=== PATIENT | female | born 1945 | race Caucasian/White ===

== ENCOUNTER 2021-03-27 15:44 | Inpatient (IN) | payer MEDICARE, BC ==
[2021-03-27] MEDS ORDERED: Albuterol/Ipratropium 3.0-0.5 MG/3 ML Neb Soln NEB ONE (16:27)
--- NOTE | 2021-03-27 16:50 | EDM.PDOC ---
ED HPI GENERAL MEDICAL PROBLEM - General Chief Complaint: Respiratory Problem Stated Complaint: SOB, HALLUCINATIONS, CONCERNS OF EMPHYSEMA Time Seen by Provider: 03/27/21 16:00 Source of Information: Reports: Family History Limitations: Reports: No Limitations - History of Present Illness INITIAL COMMENTS - FREE TEXT/NARRATIVE: Patient is a 76-year-old female with a past medical history of obesity and hypertension presenting with a chief complaint of shortness of breath and hallucinations. Patient is present with son who provides most of history. According to son, she was recently diagnosed with emphysema. She is scheduled to see the specialist next week. However, she has noticed over the past few days she has been feeling increasingly short of breath. She has had some mild cough but no fevers. Denies any associated chest pain. Patient has also been having hallucinations at home. The hallucinations are described as intruders in the house when no one is there. There is not been any associated confusion. She is still been alert day and time and relatives. Hallucinations have been ongoing for several days now as well. - Related Data Allergies Allergy/AdvReac Type Severity Reaction Status Date / Time erythromycin base Allergy Rash Verified 03/28/21 16:49 Penicillins Allergy Hives Verified 03/27/21 16:05 Sulfa (Sulfonamide Allergy Hives Verified 03/27/21 16:05 Antibiotics) MICHELLE Inhibitors AdvReac Cough Verified 03/27/21 16:05 Home Meds: Home Meds Allopurinol [Zyloprim] 300 mg PO DAILY 01/02/16 [History] Aspirin 81 mg PO DAILY 01/02/16 [History] Clindamycin HCl [Cleocin] 600 mg PO ASDIRECTED PRN 01/02/16 [History] Metoprolol Succinate [Toprol XL] 50 mg PO BID 01/02/16 [History] Omeprazole 20 mg PO ACBREAKFAST 01/02/16 [History] Simvastatin [Zocor] 5 mg PO BEDTIME 01/02/16 [History] Warfarin [Coumadin] 2.5 mg PO SUTUWETHSA 01/02/16 [History] dilTIAZem HCL [Cartia Xt] 240 mg PO DAILY 01/02/16 [History] Doxazosin Mesylate [Cardura] 2 mg PO BEDTIME 03/27/21 [History] Losartan [Cozaar] 50 mg PO DAILY 03/27/21 [History] Multivitamin [Multi-Vitamin Daily] 1 tab PO DAILY 03/27/21 [History] Triamcinolone Acetonide [Triamcinolone Acetonide 0.1% Crm] 1 applic TOP ASDIRECTED PRN 03/27/21 [History] Warfarin [Coumadin] 5 mg PO MOFR 03/27/21 [History] Past Medical History Cardiovascular History: Reports: Pacemaker Respiratory History: Reports: SOB Gastrointestinal History: Reports: GERD, Hiatal Hernia Genitourinary History: Reports: Chronic Renal Insuffiency Musculoskeletal History: Reports: Arthritis, Back Pain, Chronic Dermatologic History: Reports: Other (See Below) Other Dermatologic History: itching - Past Surgical History HEENT Surgical History: Reports: Tonsillectomy GI Surgical History: Reports: Cholecystectomy Social & Family History - Tobacco Use Tobacco Use Status *Q: Never Tobacco User - Living Situation & Occupation Living situation: Reports: Single Occupation: Retired ED ROS GENERAL - Review of Systems Review Of Systems: See Below Free Text/Narrative/Comment: In addition to that documented in the HPI above, the additional ROS was obtained: Constitutional: Denies fevers or chills Eyes: Denies vision changes ENMT: Denies sore throat CV: Denies chest pain Resp: Per HPI GI: Denies vomiting or diarrhea : Denies painful urination MSK: Denies recent trauma Skin: Denies new rashes Neuro: Denies new numbness or tingling or weakness Endocrine: Denies unexpected weight loss Heme: Denies bleeding disorders ED EXAM, GENERAL - Physical Exam Exam: See Below Free Text/Narrative:: I have reviewed the triage vital signs Const: Well nourished, well developed, appears stated age Eyes: Pupils Equal and reactive to light bilaterally, no conjunctival injection HENT: No signs of trauma or swelling, Neck supple without meningismus CV: Regular Rate Rhythm, Warm, well-perfused extremities RESP: Diffuse bilateral wheezes. Pursed lips breathing. Unlabored respiratory effort GI: soft, non-tender, non-distended, no masses MSK: No gross deformities appreciated Skin: Warm, dry. 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 Sensation and motor funct ion of extremities grossly intact. Psych: Appropriate mood and affect. #1 Interpretation EKG Date: 03/27/21 Time: 17:03 Rhythm: Other Rate (Beats/Min): 64 EKG Interpretation Comments: Ventricular paced rhythm. Abnormal EKG Course - Vital Signs Last Recorded V/S: Last Vital Signs Temp 36.5 C 03/28/21 14:50 Pulse 68 03/28/21 14:50 Resp 22 H 03/28/21 14:50 BP 153/64 H 03/28/21 14:50 Pulse Ox 94 L 03/28/21 14:50 - Orders/Labs/Meds Orders: Active Orders 24 hr Category Date Time Status RT Aerosol Therapy [RC] ASDIRECTED Care 03/27/21 16:28 Active Medication Orders Albuterol/Ipratropium (Albuterol/Ipratropium 3.0-0.5 Mg/3 Ml Neb Soln) 3 ml NEB BIDRT [facility] Aspirin (Aspirin 81 Mg Tab.Chew) 81 mg PO DAILY [facility] Azithromycin 500 mg/ Sodium (Chloride) 250 mls @ 250 mls/hr IV Q24H [facility] Stop: 03/29/21 20:29 Ceftriaxone Sodium 1 gm/ (Sodium Chloride) 100 mls @ 200 mls/hr IV Q24H [facility] Stop: 03/31/21 19:29 Losartan Potassium (Losartan 50 Mg Tab) 50 mg PO DAILY [facility] Metoprolol Succinate (Metoprolol Succinate 50 Mg Tab.Er) 50 mg PO BID [facility] Pantoprazole Sodium (Pantoprazole 40 Mg Tab.Cr) 40 mg PO ACBREAKFAST [facility] Pravastatin Sodium (Pravastatin 20 Mg Tab) 10 mg PO BEDTIME [facility] Warfarin Sodium (Pharmacy To Dose - Warfarin) 0 dose .XX ASDIRECTED PRN PRN Reason: RX TO DOSE WARFARIN Warfarin Sodium (Warfarin 1 Mg Tab) 1 mg PO QPM [facility] Stop: 03/28/21 21:00 Labs: Laboratory Tests 03/27/21 03/27/21 03/27/21 Range/Units 16:37 16:37 16:37 WBC 6.28 (3.98-10.04) K/mm3 RBC 3.63 L (3.98-5.22) M/mm3 Hgb 10.4 L D (11.2-15.7) gm/dl Hct 34.7 (34.1-44.9) % MCV 95.6 H D (79.4-94.8) fl MCH 28.7 (25.6-32.2) pg MCHC 30.0 L (32.2-35.5) g/dl RDW Std Deviation 51.8 H (36.4-46.3) fL Plt Count 201 (182-369) K/mm3 MPV 9.1 L (9.4-12.3) fl Neut % (Auto) 81.5 H (34.0-71.1) % Lymph % (Auto) 10.7 L (19.3-51.7) % [place] % (Auto) 5.4 (4.7-12.5) % Eos % (Auto) 1.9 (0.7-5.8) Baso % (Auto) 0.3 (0.1-1.2) % Neut # (Auto) 5.12 (1.56-6.13) K/mm3 Lymph # (Auto) 0.67 L (1.18-3.74) K/mm3 [place] # (Auto) 0.34 (0.24-0.36) K/mm3 Eos # (Auto) 0.12 (0.04-0.36) K/mm3 Baso # (Auto) 0.02 (0.01-0.08) K/mm3 PT 35.1 H (9.7-12.0) SECONDS INR 3.31 D-Dimer, Quantitative 0.54 H (0.19-0.50) mg/L VBG pH (7.30-7.40) VBG pCO2 (41-51) mmHg VBG pO2 (40-80) mmHG VBG HCO3 (22-26) meq/L VBG O2 Saturation VBG Base Excess (-4.0-2.0) Sodium 145 (136-145) mEq/L Potassium 3.8 (3.5-5.1) mEq/L Chloride 105 (98-107) mEq/L Carbon Dioxide 31 (21-32) mEq/L Anion Gap 12.8 (5-15) BUN 24 H (7-18) mg/dL Creatinine 1.4 H (0.55-1.02) mg/dL Est Cr Clr Drug Dosing 32.81 mL/min Estimated GFR (MDRD) 36 (>60) mL/min BUN/Creatinine Ratio 17.1 (14-18) Glucose 115 H (70-99) mg/dL Calcium 9.1 (8.5-10.1) mg/dL Total Bilirubin 1.2 H (0.2-1.0) mg/dL AST 26 (15-37) U/L ALT 32 (14-59) U/L Alkaline Phosphatase 84 (46-116) U/L Troponin I (0.00-0.056) ng/mL NT-Pro-B Natriuret Pep (0-450) pg/mL Total Protein 7.7 (6.4-8.2) g/dl Albumin 3.2 L (3.4-5.0) g/dl Globulin 4.5 gm/dL Albumin/Globulin Ratio 0.7 L (1-2) Urine Color (Yellow) Urine Appearance (Clear) Urine pH (5.0-8.0) Ur Specific [place] (1.005-1.030) Urine Protein (Negative) Urine Glucose (UA) (Negative) Urine Ketones (Negative) Urine Occult Blood (Negative) Urine Nitrite (Negative) Urine Bilirubin (Negative) Urine Urobilinogen (0.2-1.0) Ur Leukocyte Esterase (Negative) Urine RBC (0-5) /hpf Urine WBC (0-5) /hpf Ur Squamous Epith Cells (0-5) /hpf Urine Bacteria (FEW) /hpf Urine Mucus (FEW) /hpf SARS-CoV-2 RNA (KARLENE) (NEGATIVE) 03/27/21 03/27/21 03/27/21 Range/Units 16:37 16:37 16:37 WBC (3.98-10.04) K/mm3 RBC (3.98-5.22) M/mm3 Hgb (11.2-15.7) gm/dl Hct (34.1-44.9) % MCV (79.4-94.8) fl MCH (25.6-32.2) pg MCHC (32.2-35.5) g/dl RDW Std Deviation (36.4-46.3) fL Plt Count (182-369) K/mm3 MPV (9.4-12.3) fl Neut % (Auto) (34.0-71.1) % Lymph % (Auto) (19.3-51.7) % [place] % (Auto) (4.7-12.5) % Eos % (Auto) (0.7-5.8) Baso % (Auto) (0.1-1.2) % Neut # (Auto) (1.56-6.13) K/mm3 Lymph # (Auto) (1.18-3.74) K/mm3 [place] # (Auto) (0.24-0.36) K/mm3 Eos # (Auto) (0.04-0.36) K/mm3 Baso # (Auto) (0.01-0.08) K/mm3 PT (9.7-12.0) SECONDS INR D-Dimer, Quantitative (0.19-0.50) mg/L VBG pH 7.36 (7.30-7.40) VBG pCO2 50.8 (41-51) mmHg VBG pO2 39.0 L (40-80) mmHG VBG HCO3 27.8 H (22-26) meq/L VBG O2 Saturation 60.0 VBG Base Excess 2.2 H (-4.0-2.0) Sodium (136-145) mEq/L Potassium (3.5-5.1) mEq/L Chloride (98-107) mEq/L Carbon Dioxide (21-32) mEq/L Anion Gap (5-15) BUN (7-18) mg/dL Creatinine (0.55-1.02) mg/dL Est Cr Clr Drug Dosing mL/min Estimated GFR (MDRD) (>60) mL/min BUN/Creatinine Ratio (14-18) Glucose (70-99) mg/dL Calcium (8.5-10.1) mg/dL Total Bilirubin (0.2-1.0) mg/dL AST (15-37) U/L ALT (14-59) U/L Alkaline Phosphatase (46-116) U/L Troponin I < 0.017 (0.00-0.056) ng/mL NT-Pro-B Natriuret Pep 39519 H (0-450) pg/mL Total Protein (6.4-8.2) g/dl Albumin (3.4-5.0) g/dl Globulin gm/dL Albumin/Globulin Ratio (1-2) Urine Color (Yellow) Urine Appearance (Clear) Urine pH (5.0-8.0) Ur Specific [place] (1.005-1.030) Urine Protein (Negative) Urine Glucose (UA) (Negative) Urine Ketones (Negative) Urine Occult Blood (Negative) Urine Nitrite (Negative) Urine Bilirubin (Negative) Urine Urobilinogen (0.2-1.0) Ur Leukocyte Esterase (Negative) Urine RBC (0-5) /hpf Urine WBC (0-5) /hpf Ur Squamous Epith Cells (0-5) /hpf Urine Bacteria (FEW) /hpf Urine Mucus (FEW) /hpf SARS-CoV-2 RNA (KARLENE) (NEGATIVE) 03/27/21 03/27/21 Range/Units 19:22 19:23 WBC (3.98-10.04) K/mm3 RBC (3.98-5.22) M/mm3 Hgb (11.2-15.7) gm/dl Hct (34.1-44.9) % MCV (79.4-94.8) fl MCH (25.6-32.2) pg MCHC (32.2-35.5) g/dl RDW Std Deviation (36.4-46.3) fL Plt Count (182-369) K/mm3 MPV (9.4-12.3) fl Neut % (Auto) (34.0-71.1) % Lymph % (Auto) (19.3-51.7) % [place] % (Auto) (4.7-12.5) % Eos % (Auto) (0.7-5.8) Baso % (Auto) (0.1-1.2) % Neut # (Auto) (1.56-6.13) K/mm3 Lymph # (Auto) (1.18-3.74) K/mm3 [place] # (Auto) (0.24-0.36) K/mm3 Eos # (Auto) (0.04-0.36) K/mm3 Baso # (Auto) (0.01-0.08) K/mm3 PT (9.7-12.0) SECONDS INR D-Dimer, Quantitative (0.19-0.50) mg/L VBG pH (7.30-7.40) VBG pCO2 (41-51) mmHg VBG pO2 (40-80) mmHG VBG HCO3 (22-26) meq/L VBG O2 Saturation VBG Base Excess (-4.0-2.0) Sodium (136-145) mEq/L Potassium (3.5-5.1) mEq/L Chloride (98-107) mEq/L Carbon Dioxide (21-32) mEq/L Anion Gap (5-15) BUN (7-18) mg/dL Creatinine (0.55-1.02) mg/dL Est Cr Clr Drug Dosing mL/min Estimated GFR (MDRD) (>60) mL/min BUN/Creatinine Ratio (14-18) Glucose (70-99) mg/dL Calcium (8.5-10.1) mg/dL Total Bilirubin (0.2-1.0) mg/dL AST (15-37) U/L ALT (14-59) U/L Alkaline Phosphatase (46-116) U/L Troponin I (0.00-0.056) ng/mL NT-Pro-B Natriuret Pep (0-450) pg/mL Total Protein (6.4-8.2) g/dl Albumin (3.4-5.0) g/dl Globulin gm/dL Albumin/Globulin Ratio (1-2) Urine Color Yellow (Yellow) Urine Appearance Slt cloudy H (Clear) Urine pH 6.0 (5.0-8.0) Ur Specific [place] 1.025 (1.005-1.030) Urine Protein 2+ H (Negative) Urine Glucose (UA) Negative (Negative) Urine Ketones Negative (Negative) Urine Occult Blood 3+ H (Negative) Urine Nitrite Positive H (Negative) Urine Bilirubin Negative (Negative) Urine Urobilinogen 0.2 (0.2-1.0) Ur Leukocyte Esterase 1+ H (Negative) Urine RBC 10-20 H (0-5) /hpf Urine WBC 10-20 H (0-5) /hpf Ur Squamous Epith Cells 5-10 H (0-5) /hpf Urine Bacteria Moderate H (FEW) /hpf Urine Mucus Few (FEW) /hpf SARS-CoV-2 RNA (KARLENE) Negative (NEGATIVE) Meds: Medications Generic Name Dose Route Start Last Admin Trade Name Freq PRN Reason Stop Dose Admin Albuterol/Ipratropium 3 ml 03/28/21 21:00 Albuterol/Ipratropium 3.0-0.5 Mg/3 Ml Neb Soln NEB BIDRT [facility]ITA Aspirin 81 mg 03/29/21 09:00 Aspirin 81 Mg Tab.Chew PO DAILY [facility] Azithromycin 500 mg/ Sodium 250 mls @ 250 mls/hr 03/28/21 19:30 Chloride IV 03/29/21 20:29 Q24H [facility] Ceftriaxone Sodium 1 gm/ 100 mls @ 200 mls/hr 03/28/21 19:00 Sodium Chloride IV 03/31/21 19:29 Q24H [facility] Losartan Potassium 50 mg 03/29/21 09:00 Losartan 50 Mg Tab PO DAILY [facility] Metoprolol Succinate 50 mg 03/28/21 21:00 Metoprolol Succinate 50 Mg Tab.Er PO BID [facility] Pantoprazole Sodium 40 mg 03/29/21 06:00 Pantoprazole 40 Mg Tab.Cr PO ACBREAKFAST [facility] Pravastatin Sodium 10 mg 03/28/21 21:00 Pravastatin 20 Mg Tab PO BEDTIME [facility]ITA Warfarin Sodium 0 dose 03/28/21 14:45 Pharmacy To Dose - Warfarin .XX ASDIRECTED PRN RX TO DOSE WARFARIN Warfarin Sodium 1 mg 03/28/21 18:00 Warfarin 1 Mg Tab PO 03/28/21 21:00 QPM LITA Discontinued Medications Generic Name Dose Route Start Last Admin Trade Name Freq PRN Reason Stop Dose Admin Albuterol/Ipratropium 3 ml 03/27/21 16:27 03/27/21 16:56 Albuterol/Ipratropium 3.0-0.5 Mg/3 Ml Neb Soln NEB 03/27/21 16:28 3 ml ONETIME ONE Administration Furosemide 40 mg 03/27/21 18:12 03/27/21 18:46 Furosemide 40 Mg/4 Ml Vial IVPUSH 03/27/21 18:13 40 mg NOW ONE Administration Furosemide 40 mg 03/28/21 12:15 03/28/21 14:50 Furosemide 40 Mg/4 Ml Vial IVPUSH 03/28/21 12:16 40 mg NOW ONE Administration Furosemide Confirm 03/28/21 14:43 03/28/21 15:06 Furosemide 40 Mg/4 Ml Vial Administered 03/28/21 14:44 Not Given Dose 40 mg .ROUTE .STK-MED ONE Ceftriaxone Sodium 1 gm/ 100 mls @ 200 mls/hr 03/27/21 17:54 03/27/21 18:51 Sodium Chloride IV 03/27/21 18:23 200 mls/hr ONETIME ONE Administration Azithromycin 500 mg/ Sodium 250 mls @ 250 mls/hr 03/27/21 17:54 03/27/21 19:28 Chloride IV 03/27/21 18:53 250 mls/hr ONETIME ONE Administration - Re-Assessments/Exams Free Text/Narrative Re-Assessment/Exam: 03/27/21 18:38 Laboratory studies and chest x-ray reviewed. She demonstrates evidence of pulmonary vascular congestion and bilateral pleural effusions consistent with CHF. Cannot exclude a superimposed pneumonia at the left lung base. Laboratory studies demonstrate 17,000 BNP. Patient otherwise is not showing evidence of NSTEMI. No evidence of sepsis. She is currently requiring 2 L nasal cannula. I administered azithromycin, Rocephin and Lasix in the emergency room. I informed patient that she will need to be admitted for further treatment. At this time, no hospital beds available and this facility or in surrounding areas. Pending admission at this time. Free Text/Narrative Re-Assessment/Exam: 03/28/21 17:05 Patient admitted to hospital service for CHF exacerbation with hypoxia and possible pneumonia. Departure - Departure Time of Disposition: 14:00 Disposition: Admitted As Inpatient 64 Clinical Impression: CHF (congestive heart failure), CKD (chronic kidney disease) stage 3, GFR 30-59 ml/min - Discharge Information Sepsis Event Note (ED) - Evaluation Sepsis Screening Result: No Definite Risk - Focused Exam Vital Signs: Vital Signs Temp Pulse Resp BP Pulse Ox 03/28/21 07:28 36.6 C 64 18 153/73 H 94 L - My Orders Last 24 Hours: My Active Orders 03/27/21 16:28 RT Aerosol Therapy [RC] ASDIRECTED - Assessment/Plan Last 24 Hours: My Active Orders 03/27/21 16:28 RT Aerosol Therapy [RC] ASDIRECTED
[2021-03-27] MEDS ORDERED: Azithromycin 500 MG in Sodium Chloride 0.9% 250 ML IV ONE (17:54)
[2021-03-27] MEDS ORDERED: cefTRIAXone 1 GM in Sodium Chloride 0.9% 100 ML IV ONE (17:54)
[2021-03-27] MEDS ORDERED: Furosemide 40 MG/4 ML VIAL IVPUSH ONE (18:12)
--- NOTE | 2021-03-28 10:08 | CR ---
EXAM: XR CHEST 1 VIEW LOCATION: [facility] (formerly [facility] [employer] DATE/TIME: 03/27/2021 4:30 PM INDICATION: Dyspnea COMPARISON: None. IMPRESSION: Marked cardiomegaly with pacemaker present. There is central vascular congestion and diffuse interstitial prominence most consistent with CHF. Small bilateral pleural effusions. Can't exclude superimposed pneumonia at left lung base. SIGNED BY: Santo Bauman MD 03/27/2021 5:56 PM MTDD
[2021-03-28] MEDS ORDERED: Azithromycin 250 MG in Sodium Chloride 0.9% 250 ML IV ONE (12:15)
[2021-03-28] MEDS ORDERED: Furosemide 40 MG/4 ML VIAL IVPUSH ONE (12:15)
[2021-03-28] MEDS ORDERED: cefTRIAXone 1 GM in Sodium Chloride 0.9% 100 ML IV ONE (12:15)
--- NOTE | 2021-03-28 14:06 | PCM.HP.2 ---
H&P History of Present Illness - General Date of Service: 03/28/21 Admit Problem/Dx: Admission Diagnosis/Problem Admission Diagnosis/Problem Congestive heart failure - History of Present Illness Initial Comments - Free Text/Narative: Patient is a 76-year-old female with a past medical history of atrial fibrillation status post pacemaker on chronic anticoagulation with warfarin, questionable history of CHF, recent diagnosis of emphysema, hypertension, hyperlipidemia who presented the emergency department with shortness of breath and confusion. Per patient, EMS reports patient had been having increased shortness of breath and confusion over the last several days and she had reportedly had some hallucinations per her son who brought her in for further evaluation. Patient was initially hypoxic with oxygen saturation 77% on room air when she was brought to the emergency department. Patient's oxygenation improved significantly with the addition of nasal cannula. Laboratory values include sodium 145, potassium 3.8, creatinine 1.4, BUN 24, white count 6, hemoglobin 10.4, platelet count 201, proBNP 17,799, UA showed moderate bacteria, +3 blood, positive nitrites. Patient's COVID-19 testing was negative. Chest x- ray revealed bilateral effusions, pulmonary edema versus infiltrate. Patient was given ceftriaxone, azithromycin, 40 IV Lasix in the emergency department. Request was made for admission but no beds were available so patient was held in the ER overnight. The following day patient continued provement her oxygenation was requiring 3 to 4 L to maintain oxygen saturations. An additional dose of 40 IV Lasix, ceftriaxone and azithromycin were given to patient prior to admission. Patient remained hemodynamically stable. When I saw patient emergency department she was resting comfortably in bed. She states that she agrees with the above assessment. States that she was seeing things around the house including a little child in their house. She states that her is on dialysis and often gets urinary tract infections and also was seeing things in their house. She states that she has chronic dyspnea for many years and was just recently diagnosed with emphysema on a CAT scan and was supposed to see pulmonary medicine this next Saturday. She states that for the last couple of weeks and specialist couple of days she is noted some increased shortness of breath including worsening leg swelling, orthopnea. She denies any fevers, cough, abdominal pain, urinary pain or frequency, nausea or vomiting. She states that she has a history of A. fib and has a pacemaker and takes medications for this. She states that she has heard that her vending machine repairer was Dr. Nathan at [facility] has mentioned something about heart failure before but she is unsure if she has heart failure. Patient states that she does not take any diuretic medications and she states she is never had to be hospitalized for heart failure. Patient also states for emphysema she does not take any nebulizers at home. Remainder review of systems negative except those listed above. - Related Data Allergies/Adverse Reactions: Allergies Allergy/AdvReac Type Severity Reaction Status Date / Time Penicillins Allergy Hives Verified 03/27/21 16:05 Sulfa (Sulfonamide Allergy Hives Verified 03/27/21 16:05 Antibiotics) MICEHLLE Inhibitors AdvReac Cough Verified 03/27/21 16:05 Home Medications: Home Meds Allopurinol [Zyloprim] 300 mg PO DAILY 01/02/16 [History] Aspirin 81 mg PO DAILY 01/02/16 [History] Clindamycin HCl [Cleocin] 600 mg PO ASDIRECTED PRN 01/02/16 [History] Metoprolol Succinate [Toprol XL] 50 mg PO BID 01/02/16 [History] Omeprazole 5 mg PO ACBREAKFAST 01/02/16 [History] Simvastatin [Zocor] 5 mg PO BEDTIME 01/02/16 [History] Warfarin [Coumadin] 2.5 mg PO SUMOTUWETHSA 01/02/16 [History] dilTIAZem HCL [Cartia Xt] 240 mg PO DAILY 01/02/16 [History] Doxazosin Mesylate [Cardura] 2 mg PO BEDTIME 03/27/21 [History] Losartan [Cozaar] 50 mg PO DAILY 03/27/21 [History] Multivitamin [Multi-Vitamin Daily] 1 tab PO DAILY 03/27/21 [History] Triamcinolone Acetonide [Triamcinolone Acetonide 0.1% Crm] 1 applic TOP A SDIRECTED PRN 03/27/21 [History] Warfarin [Coumadin] 5 mg PO FR 03/27/21 [History] Past Medical History Cardiovascular History: Reports: Pacemaker Respiratory History: Reports: SOB Gastrointestinal History: Reports: GERD, Hiatal Hernia Genitourinary History: Reports: Chronic Renal Insuffiency Musculoskeletal History: Reports: Arthritis, Back Pain, Chronic Dermatologic History: Reports: Other (See Below) Other Dermatologic History: itching - Past Surgical History HEENT Surgical History: Reports: Tonsillectomy GI Surgical History: Reports: Cholecystectomy Social & Family History - Tobacco Use Tobacco Use Status *Q: Never Tobacco User - Living Situation & Occupation Living situation: Reports: Single Occupation: Retired H&P Review of Systems - Review of Systems: Review Of Systems: Comprehensive ROS is negative, except as noted in HPI. Exam - Exam Exam: See Below - Vital Signs Vital Signs: Last Vital Signs Temp 97.9 F 03/28/21 07:28 Pulse 64 03/28/21 07:28 Resp 18 03/28/21 07:28 BP 153/73 H 03/28/21 07:28 Pulse Ox 94 L 03/28/21 07:28 Weight: 243 lb - Exam Quality Assessment: Supplemental Oxygen General: Alert, Oriented HEENT: Conjunctiva Clear, EACs Clear Neck: Supple, Trachea Midline Lungs: Decreased Breath Sounds, Crackles (bases) Cardiovascular: Regular Rate, Irregular Rhythm GI/Abdominal Exam: Normal Bowel Sounds, Soft, Non-Tender Back Exam: Normal Inspection Extremities: Normal Inspection, Normal Range of Motion, Pedal Edema Peripheral Pulses: 2+: Radial (L), Radial (R) Skin: Warm Neurological: Cranial Nerves Intact Neuro Extensive - Mental Status: Alert, Oriented x3 Neuro Extensive - Motor, Sensory, Reflexes: CN II-XII Intact - Patient Data Lab Results Last 24 hrs: Laboratory Results - last 24 hr 03/27/21 03/27/21 03/27/21 Range/Units 16:37 16:37 16:37 WBC 6.28 (3.98-10.04) K/mm3 RBC 3.63 L (3.98-5.22) M/mm3 Hgb 10.4 L D (11.2-15.7) gm/dl Hct 34.7 (34.1-44.9) % MCV 95.6 H D (79.4-94.8) fl MCH 28.7 (25.6-32.2) pg MCHC 30.0 L (32.2-35.5) g/dl RDW Std Deviation 51.8 H (36.4-46.3) fL Plt Count 201 (182-369) K/mm3 MPV 9.1 L (9.4-12.3) fl Neut % (Auto) 81.5 H (34.0-71.1) % Lymph % (Auto) 10.7 L (19.3-51.7) % [place] % (Auto) 5.4 (4.7-12.5) % Eos % (Auto) 1.9 (0.7-5.8) Baso % (Auto) 0.3 (0.1-1.2) % Neut # (Auto) 5.12 (1.56-6.13) K/mm3 Lymph # (Auto) 0.67 L (1.18-3.74) K/mm3 [place] # (Auto) 0.34 (0.24-0.36) K/mm3 Eos # (Auto) 0.12 (0.04-0.36) K/mm3 Baso # (Auto) 0.02 (0.01-0.08) K/mm3 PT 35.1 H (9.7-12.0) SECONDS INR 3.31 D-Dimer, Quantitative 0.54 H (0.19-0.50) mg/L VBG pH (7.30-7.40) VBG pCO2 (41-51) mmHg VBG pO2 (40-80) mmHG VBG HCO3 (22-26) meq/L VBG O2 Saturation VBG Base Excess (-4.0-2.0) Sodium 145 (136-145) mEq/L Potassium 3.8 (3.5-5.1) mEq/L Chloride 105 (98-107) mEq/L Carbon Dioxide 31 (21-32) mEq/L Anion Gap 12.8 (5-15) BUN 24 H (7-18) mg/dL Creatinine 1.4 H (0.55-1.02) mg/dL Est Cr Clr Drug Dosing 32.81 mL/min Estimated GFR (MDRD) 36 (>60) mL/min BUN/Creatinine Ratio 17.1 (14-18) Glucose 115 H (70-99) mg/dL Calcium 9.1 (8.5-10.1) mg/dL Total Bilirubin 1.2 H (0.2-1.0) mg/dL AST 26 (15-37) U/L ALT 32 (14-59) U/L Alkaline Phosphatase 84 (46-116) U/L Troponin I (0.00-0.056) ng/mL NT-Pro-B Natriuret Pep (0-450) pg/mL Total Protein 7.7 (6.4-8.2) g/dl Albumin 3.2 L (3.4-5.0) g/dl Globulin 4.5 gm/dL Albumin/Globulin Ratio 0.7 L (1-2) Urine Color (Yellow) Urine Appearance (Clear) Urine pH (5.0-8.0) Ur Specific [place] (1.005-1.030) Urine Protein (Negative) Urine Glucose (UA) (Negative) Urine Ketones (Negative) Urine Occult Blood (Negative) Urine Nitrite (Negative) Urine Bilirubin (Negative) Urine Urobilinogen (0.2-1.0) Ur Leukocyte Esterase (Negative) Urine RBC (0-5) /hpf Urine WBC (0-5) /hpf Ur Squamous Epith Cells (0-5) /hpf Urine Bacteria (FEW) /hpf Urine Mucus (FEW) /hpf SARS-CoV-2 RNA (KARLENE) (NEGATIVE) 03/27/21 03/27/21 03/27/21 Range/Units 16:37 16:37 16:37 WBC (3.98-10.04) K/mm3 RBC (3.98-5.22) M/mm3 Hgb (11.2-15.7) gm/dl Hct (34.1-44.9) % MCV (79.4-94.8) fl MCH (25.6-32.2) pg MCHC (32.2-35.5) g/dl RDW Std Deviation (36.4-46.3) fL Plt Count (182-369) K/mm3 MPV (9.4-12.3) fl Neut % (Auto) (34.0-71.1) % Lymph % (Auto) (19.3-51.7) % [place] % (Auto) (4.7-12.5) % Eos % (Auto) (0.7-5.8) Baso % (Auto) (0.1-1.2) % Neut # (Auto) (1.56-6.13) K/mm3 Lymph # (Auto) (1.18-3.74) K/mm3 [place] # (Auto) (0.24-0.36) K/mm3 Eos # (Auto) (0.04-0.36) K/mm3 Baso # (Auto) (0.01-0.08) K/mm3 PT (9.7-12.0) SECONDS INR D-Dimer, Quantitative (0.19-0.50) mg/L VBG pH 7.36 (7.30-7.40) VBG pCO2 50.8 (41-51) mmHg VBG pO2 39.0 L (40-80) mmHG VBG HCO3 27.8 H (22-26) meq/L VBG O2 Saturation 60.0 VBG Base Excess 2.2 H (-4.0-2.0) Sodium (136-145) mEq/L Potassium (3.5-5.1) mEq/L Chloride (98-107) mEq/L Carbon Dioxide (21-32) mEq/L Anion Gap (5-15) BUN (7-18) mg/dL Creatinine (0.55-1.02) mg/dL Est Cr Clr Drug Dosing mL/min Estimated GFR (MDRD) (>60) mL/min BUN/Creatinine Ratio (14-18) Glucose (70-99) mg/dL Calcium (8.5-10.1) mg/dL Total Bilirubin (0.2-1.0) mg/dL AST (15-37) U/L ALT (14-59) U/L Alkaline Phosphatase (46-116) U/L Troponin I < 0.017 (0.00-0.056) ng/mL NT-Pro-B Natriuret Pep 06323 H (0-450) pg/mL Total Protein (6.4-8.2) g/dl Albumin (3.4-5.0) g/dl Globulin gm/dL Albumin/Globulin Ratio (1-2) Urine Color (Yellow) Urine Appearance (Clear) Urine pH (5.0-8.0) Ur Specific [place] (1.005-1.030) Urine Protein (Negative) Urine Glucose (UA) (Negative) Urine Ketones (Negative) Urine Occult Blood (Negative) Urine Nitrite (Negative) Urine Bilirubin (Negative) Urine Urobilinogen (0.2-1.0) Ur Leukocyte Esterase (Negative) Urine RBC (0-5) /hpf Urine WBC (0-5) /hpf Ur Squamous Epith Cells (0-5) /hpf Urine Bacteria (FEW) /hpf Urine Mucus (FEW) /hpf SARS-CoV-2 RNA (KARLENE) (NEGATIVE) 03/27/21 03/27/21 Range/Units 19:22 19:23 WBC (3.98-10.04) K/mm3 RBC (3.98-5.22) M/mm3 Hgb (11.2-15.7) gm/dl Hct (34.1-44.9) % MCV (79.4-94.8) fl MCH (25.6-32.2) pg MCHC (32.2-35.5) g/dl RDW Std Deviation (36.4-46.3) fL Plt Count (182-369) K/mm3 MPV (9.4-12.3) fl Neut % (Auto) (34.0-71.1) % Lymph % (Auto) (19.3-51.7) % [place] % (Auto) (4.7-12.5) % Eos % (Auto) (0.7-5.8) Baso % (Auto) (0.1-1.2) % Neut # (Auto) (1.56-6.13) K/mm3 Lymph # (Auto) (1.18-3.74) K/mm3 [place] # (Auto) (0.24-0.36) K/mm3 Eos # (Auto) (0.04-0.36) K/mm3 Baso # (Auto) (0.01-0.08) K/mm3 PT (9.7-12.0) SECONDS INR D-Dimer, Quantitative (0.19-0.50) mg/L VBG pH (7.30-7.40) VBG pCO2 (41-51) mmHg VBG pO2 (40-80) mmHG VBG HCO3 (22-26) meq/L VBG O2 Saturation VBG Base Excess (-4.0-2.0) Sodium (136-145) mEq/L Potassium (3.5-5.1) mEq/L Chloride (98-107) mEq/L Carbon Dioxide (21-32) mEq/L Anion Gap (5-15) BUN (7-18) mg/dL Creatinine (0.55-1.02) mg/dL Est Cr Clr Drug Dosing mL/min Estimated GFR (MDRD) (>60) mL/min BUN/Creatinine Ratio (14-18) Glucose (70-99) mg/dL Calcium (8.5-10.1) mg/dL Total Bilirubin (0.2-1.0) mg/dL AST (15-37) U/L ALT (14-59) U/L Alkaline Phosphatase (46-116) U/L Troponin I (0.00-0.056) ng/mL NT-Pro-B Natriuret Pep (0-450) pg/mL Total Protein (6.4-8.2) g/dl Albumin (3.4-5.0) g/dl Globulin gm/dL Albumin/Globulin Ratio (1-2) Urine Color Yellow (Yellow) Urine Appearance Slt cloudy H (Clear) Urine pH 6.0 (5.0-8.0) Ur Specific [place] 1.025 (1.005-1.030) Urine Protein 2+ H (Negative) Urine Glucose (UA) Negative (Negative) Urine Ketones Negative (Negative) Urine Occult Blood 3+ H (Negative) Urine Nitrite Positive H (Negative) Urine Bilirubin Negative (Negative) Urine Urobilinogen 0.2 (0.2-1.0) Ur Leukocyte Esterase 1+ H (Negative) Urine RBC 10-20 H (0-5) /hpf Urine WBC 10-20 H (0-5) /hpf Ur Squamous Epith Cells 5-10 H (0-5) /hpf Urine Bacteria Moderate H (FEW) /hpf Urine Mucus Few (FEW) /hpf SARS-CoV-2 RNA (KARLENE) Negative (NEGATIVE) Result Diagrams: 03/27/21 16:37 03/27/21 16:37 Sepsis Event Note - Evaluation Sepsis Screening Result: No Definite Risk - Focused Exam Vital Signs: Vital Signs Temp Pulse Resp BP Pulse Ox 03/28/21 07:28 97.9 F 64 18 153/73 H 94 L *Q Meaningful Use (ADM) - VTE *Q VTE Pharmacological Contraindications *Q: Risk of Bleeding - Problem List (1) Acute respiratory failure with hypoxia SNOMED Code(s): 82745667, 563276767 ICD Code: J96.01 - ACUTE RESPIRATORY FAILURE WITH HYPOXIA Status: Acute Current Visit: Yes (2) Atrial fibrillation SNOMED Code(s): 29177244 ICD Code: I48.91 - UNSPECIFIED ATRIAL FIBRILLATION Status: Acute Current Visit: Yes (3) Emphysema lung SNOMED Code(s): 33861196 ICD Code: J43.9 - EMPHYSEMA, UNSPECIFIED Status: Acute Current Visit: Yes (4) HTN (hypertension) SNOMED Code(s): 95726630 ICD Code: I10 - ESSENTIAL (PRIMARY) HYPERTENSION Status: Acute Current Visit: Yes (5) HLD (hyperlipidemia) SNOMED Code(s): 73916644 ICD Code: E78.5 - HYPERLIPIDEMIA, UNSPECIFIED Status: Acute Current V isit: Yes (6) CHF (congestive heart failure) SNOMED Code(s): 69289168 ICD Code: I50.9 - HEART FAILURE, UNSPECIFIED Status: Acute Current Visit: Yes (7) CKD (chronic kidney disease) stage 3, GFR 30-59 ml/min SNOMED Code(s): 769070202 ICD Code: N18.30 - CHRONIC KIDNEY DISEASE, STAGE 3 UNSPECIFIED Status: Acute Current Visit: Yes Problem List Initiated/Reviewed/Updated: Yes Orders Last 24hrs: Active Orders 24 hr Category Date Time Status Patient Status [ADT] Routine ADT 03/28/21 14:00 Ordered Ambulate [RC] ASDIRECTED Care 03/28/21 14:00 Ordered Cardiac Monitoring [RC] CONTINUOUS Care 03/28/21 14:02 Ordered Daily Weight [Height and Weight] [RC] DAILY Care 03/28/21 14:04 Ordered Intake and Output [RC] QSHIFT Care 03/28/21 14:01 Ordered Oxygen Therapy [RC] PRN Care 03/28/21 14:01 Ordered RT Aerosol Therapy [RC] ASDIRECTED Care 03/27/21 16:28 Active RT Aerosol Therapy [RC] ASDIRECTED Care 03/28/21 14:04 Ordered VTE/DVT Education [RC] PER UNIT ROUTINE Care 03/28/21 14:01 Ordered Vital Signs [RC] Q4H Care 03/28/21 14:01 Ordered 2 Gram Sodium Diet [DIET] Diet 03/28/21 Dinner Ordered BASIC METABOLIC PANEL,BMP [CHEM] AM Lab 03/29/21 05:11 Ordered CBC W/O DIFF,HEMOGRAM [HEME] AM Lab 03/29/21 05:11 Ordered PROCALCITONIN [REF] DAILY Lab 03/29/21 05:15 Ordered Albuterol/Ipratropium [DuoNeb 3.0-0.5 MG/3 ML] Med 03/28/21 21:00 Ordered 3 ml NEB BIDRT Azithromycin [Zithromax] 500 mg Med 03/29/21 14:05 Ordered Sodium Chloride 0.9% [Normal Saline AdvBag] 250 ml IV ONETIME cefTRIAXone [Rocephin] 1 gm Med 03/29/21 14:15 Ordered Sodium Chloride 0.9% [Normal Saline AdvBag] 100 ml IV Q24H VTE Pharmacological Contraindications [AST] Per Unit Oth 03/28/21 14:00 Ordered Routine Resuscitation Status Routine Resus Stat 03/28/21 14:00 Ordered Medication Orders Albuterol/Ipratropium (Albuterol/Ipratropium 3.0-0.5 Mg/3 Ml Neb Soln) 3 ml NEB BIDRT LITA Azithromycin 500 mg/ Sodium (Chloride) 250 mls @ 250 mls/hr IV ONETIME ONE Stop: 03/29/21 15:04 Assessment/Plan Comment:: Patient is a 76-year-old female with a past medical history of atrial fibrillation status post pacemaker on chronic anticoagulation with warfarin, recent diagnosis of emphysema, questionable history of heart failure, hypertension, hyperlipidemia who presented with acute hypoxic respiratory failure was found to have bilateral pleural effusions concerning for a CHF exac erbation versus pneumonia. # Acute hypoxic respiratory failure # CHF # Pneumonia -Patient was hypoxic with oxygen saturations of 77% on room air on admission -Chest x-ray on admission showed bilateral pleural effusions and pulmonary edema overall concerning for CHF versus pneumonia - pro BNP 17,799 -Patient's overall history, labs and physical exam point more towards a volume overload etiology -Patient has no documented history of congestive heart failure and she denies any home diuretics - will attempt to obtain records from patient's vending machine repairer -Patient's oxygen saturations improved to 94% on 3 L nasal cannula -For treatment patient was given 40 IV Lasix x2, will continue to monitor intake and output, daily weights, repeat labs in a.m. -Pending ability to obtain records will consider ordering TTE for tomorrow -We will also treat for pneumonia with continuation of ceftriaxone azithromycin for a total of 5 days and 3 days respectively - will order procalcitonin # Atrial fibrillation -Continue metoprolol succinate 50 mg twice daily -Will hold Cardizem in the setting of acute heart failure -Continue warfarin, pharmacy to dose -telemetry monitoring # CKD 3B -Patient's creatinine is 1.4 upon admission most recent creatinine we have is 1.4 in 2016 -Continue to monitor daily creatinine electrolytes while utilizing IV diuretics -noted proteinuria - continue losartan -will recommend outpatient consult to nephrology if patient has not already established # Anemia -Hemoglobin on admission 10.4, I do not have a baseline, no evidence of bleeding per patient, could be related to chronic kidney disease -Will repeat in a.m. - watch for signs of bleeding -will obtain iron studies # Asymptomatic bacteria -Patient does not have any symptoms and is already being treated with ceftriaxone for possible pneumonia as above # Emphysema -Appears to be a recent diagnosis based on CT scan, patient states he has a follow-up with pulmonary medicine in the next several days, will schedule DuoNebs # GERDcontinue omeprazole # Hyperlipidemiacontinue statin # Gout - Patient does not recall her medications completely at this time - hold until confirmed Fluidsnone Electrolyteswithin normal limits Dietsodium restriction DVT prophylaxis warfarin Inpatient treatment for acute hypoxic respiratory failure - Mortality Measure Prognosis:: Good
[2021-03-28] MEDS ORDERED: Furosemide 40 MG/4 ML VIAL ONE (14:43)
[2021-03-28] MEDS: cefTRIAXone 1 GM in Sodium Chloride 0.9% 100 ML IV SCH (18:03)
[2021-03-28] MEDS: Azithromycin 500 MG in Sodium Chloride 0.9% 250 ML IV SCH (18:49)
[2021-03-28] MEDS: Metoprolol Succinate 50 MG Tab.ER PO SCH (21:26)
[2021-03-28] MEDS: Pravastatin 20 MG Tab PO SCH (21:28)
[2021-03-28] MEDS: Albuterol/Ipratropium 3.0-0.5 MG/3 ML Neb Soln NEB SCH (21:55)
[2021-03-29] MEDS: Albuterol/Ipratropium 3.0-0.5 MG/3 ML Neb Soln NEB SCH ×2 (06:03→21:11)
[2021-03-29] MEDS ORDERED: Potassium Chloride 20 MEQ Tab.ER PO ONE (06:07)
[2021-03-29] MEDS: Pantoprazole 40 MG Tab.CR PO SCH (06:08)
--- NOTE | 2021-03-29 06:09 | PCM.PN ---
- General Info Date of Service: 03/29/21 Subjective Update: Patient is alert and orientated x3. Denies any hallucinations overnight. States that she feels her breathing is significantly improved from when she arrived to the emergency department. Still states some mild shortness of breath. Denies any worsening orthopnea, lower extremity edema. Patient denies any abdominal pain, nausea or vomiting. Patient denies any chest pains or pressures. Remainder review of systems negative except those listed above. - Patient Data Vitals - Most Recent: Last Vital Signs Temp 97.2 F 03/29/21 04:10 Pulse 77 03/29/21 04:10 Resp 16 03/29/21 04:10 BP 150/63 H 03/29/21 04:10 Pulse Ox 97 03/29/21 06:04 Weight - Most Recent: 248 lb 6.4 oz I&O - Last 24 Hours: Intake & Output 03/28/21 03/28/21 03/29/21 14:59 22:59 06:59 Intake Total 600 Output Total 500 2650 Balance -500 -0 Lab Results Last 24 Hours: Laboratory Results - last 24 hr 03/28/21 03/29/21 03/29/21 Range/Units 15:05 05:09 05:09 WBC 6.50 (3.98-10.04) K/mm3 RBC 3.36 L (3.98-5.22) M/mm3 Hgb 9.8 L (11.2-15.7) gm/dl Hct 32.2 L (34.1-44.9) % MCV 95.8 H (79.4-94.8) fl MCH 29.2 (25.6-32.2) pg MCHC 30.4 L (32.2-35.5) g/dl RDW Std Deviation 51.0 H (36.4-46.3) fL Plt Count 177 L (182-369) K/mm3 MPV 9.7 (9.4-12.3) fl PT 31.5 H (9.7-12.0) SECONDS INR 2.96 Sodium 141 (136-145) mEq/L Potassium 3.3 L (3.5-5.1) mEq/L Chloride 102 (98-107) mEq/L Carbon Dioxide 34 H (21-32) mEq/L Anion Gap 8.3 (5-15) BUN 26 H (7-18) mg/dL Creatinine 1.4 H (0.55-1.02) mg/dL Est Cr Clr Drug Dosing 32.20 mL/min Estimated GFR (MDRD) 36 (>60) mL/min BUN/Creatinine Ratio 18.6 H (14-18) Glucose 98 (70-99) mg/dL Calcium 8.7 (8.5-10.1) mg/dL Med Orders - Current: Current Medications Albuterol/Ipratropium (Albuterol/Ipratropium 3.0-0.5 Mg/3 Ml Neb Soln) 3 ml NEB BIDRT [facility] Last Admin: 03/29/21 06:03 Dose: 3 ml Documented by: Aspirin (Aspirin 81 Mg Tab.Chew) 81 mg PO DAILY [facility] Furosemide (Furosemide 40 Mg/4 Ml Vial) 40 mg IVPUSH NOW ONE Stop: 03/29/21 07:31 Azithromycin 500 mg/ Sodium (Chloride) 250 mls @ 250 mls/hr IV Q24H LITA Stop: 03/29/21 20:29 Last Admin: 03/28/21 18:49 Dose: 250 mls/hr Documented by: Ceftriaxone Sodium 1 gm/ (Sodium Chloride) 100 mls @ 200 mls/hr IV Q24H LITA Stop: 03/31/21 19:29 Last Admin: 03/28/21 18:03 Dose: 200 mls/hr Documented by: Losartan Potassium (Losartan 50 Mg Tab) 50 mg PO DAILY [facility] Metoprolol Succinate (Metoprolol Succinate 50 Mg Tab.Er) 50 mg PO BID [facility] Last Admin: 03/28/21 21:26 Dose: 50 mg Documented by: Pantoprazole Sodium (Pantoprazole 40 Mg Tab.Cr) 40 mg PO ACBREAKFAST [facility] Last Admin: 03/29/21 06:08 Dose: 40 mg Documented by: Pravastatin Sodium (Pravastatin 20 Mg Tab) 10 mg PO BEDTIME [facility] Last Admin: 03/28/21 21:28 Dose: 10 mg Documented by: Warfarin Sodium (Pharmacy To Dose - Warfarin) 0 dose .XX ASDIRECTED PRN PRN Reason: RX TO DOSE WARFARIN Discontinued Medications Albuterol/Ipratropium (Albuterol/Ipratropium 3.0-0.5 Mg/3 Ml Neb Soln) 3 ml NEB ONETIME ONE Stop: 03/27/21 16:28 Last Admin: 03/27/21 16:56 Dose: 3 ml Documented by: Furosemide (Furosemide 40 Mg/4 Ml Vial) 40 mg IVPUSH NOW ONE Stop: 03/27/21 18:13 Last Admin: 03/27/21 18:46 Dose: 40 mg Documented by: Furosemide (Furosemide 40 Mg/4 Ml Vial) 40 mg IVPUSH NOW ONE Stop: 03/28/21 12:16 Last Admin: 03/28/21 14:50 Dose: 40 mg Documented by: Furosemide (Furosemide 40 Mg/4 Ml Vial) Confirm Administered Dose 40 mg .ROUTE .STK-MED ONE Stop: 03/28/21 14:44 Last Admin: 03/28/21 15:06 Dose: Not Given Documented by: Ceftriaxone Sodium 1 gm/ (Sodium Chloride) 100 mls @ 200 mls/hr IV ONETIME ONE Stop: 03/27/21 18:23 Last Admin: 03/27/21 18:51 Dose: 200 mls/hr Documented by: Azithromycin 500 mg/ Sodium (Chloride) 250 mls @ 250 mls/hr IV ONETIME ONE Stop: 03/27/21 18:53 Last Admin: 03/27/21 19:28 Dose: 250 mls/hr Documented by: Warfarin Sodium (Warfarin 1 Mg Tab) 1 mg PO QPM ILTA Stop: 03/28/21 21:00 Last Admin: 03/28/21 18:03 Dose: 1 mg Documented by: - Exam Quality Assessment: Supplemental Oxygen General: Alert, Oriented HEENT: Pupils Equal, Pupils Reactive Neck: Supple Lungs: Normal Respiratory Effort, Crackles (at bilateral bases) Cardiovascular: Regular Rate, Irregular Rhythm GI/Abdominal Exam: Normal Bowel Sounds, Soft, No Distention Back Exam: Normal Inspection Extremities: Normal Inspection, Pedal Edema (minimal) Peripheral Pulses: 2+: Radial (L), Radial (R) Skin: Warm Wound/Incisions: Healing Well Neurological: No New Focal Deficit Psy/Mental Status: Alert - Patient Data Lab Results Last 24 hrs: Laboratory Results - last 24 hr 03/28/21 03/29/21 03/29/21 Range/Units 15:05 05:09 05:09 WBC 6.50 (3.98-10.04) K/mm3 RBC 3.36 L (3.98-5.22) M/mm3 Hgb 9.8 L (11.2-15.7) gm/dl Hct 32.2 L (34.1-44.9) % MCV 95.8 H (79.4-94.8) fl MCH 29.2 (25.6-32.2) pg MCHC 30.4 L (32.2-35.5) g/dl RDW Std Deviation 51.0 H (36.4-46.3) fL Plt Count 177 L (182-369) K/mm3 MPV 9.7 (9.4-12.3) fl PT 31.5 H (9.7-12.0) SECONDS INR 2.96 Sodium 141 (136-145) mEq/L Potassium 3.3 L (3.5-5.1) mEq/L Chloride 102 (98-107) mEq/L Carbon Dioxide 34 H (21-32) mEq/L Anion Gap 8.3 (5-15) BUN 26 H (7-18) mg/dL Creatinine 1.4 H (0.55-1.02) mg/dL Est Cr Clr Drug Dosing 32.20 mL/min Estimated GFR (MDRD) 36 (>60) mL/min BUN/Creatinine Ratio 18.6 H (14-18) Glucose 98 (70-99) mg/dL Calcium 8.7 (8.5-10.1) mg/dL Result Diagrams: 03/29/21 05:09 03/29/21 05:09 Sepsis Event Note - Evaluation Sepsis Screening Result: No Definite Risk - Focused Exam Vital Signs: Vital Signs Temp Pulse Resp BP Pulse Ox Pulse Ox 03/29/21 06:04 97 03/29/21 04:10 97.2 F 77 16 150/63 H 92 L 03/28/21 23:42 98.4 F 81 16 147/60 H 95 03/28/21 21:55 98 03/28/21 21:28 65 141/83 H 95 03/28/21 21:26 65 141/83 H 03/28/21 20:04 97.7 F 77 16 126/49 L 92 L - Problem List & Annotations (1) Acute respiratory failure with hypoxia SNOMED Code(s): 92544427, 482784795 Code(s): J96.01 - ACUTE RESPIRATORY FAILURE WITH HYPOXIA Status: Acute Current Visit: Yes (2) Atrial fibrillation SNOMED Code(s): 02253996 Code(s): I48.91 - UNSPECIFIED ATRIAL FIBRILLATION Status: Acute Current Visit: Yes (3) Emphysema lung SNOMED Code(s): 92753388 Code(s): J43.9 - EMPHYSEMA, UNSPECIFIED Status: Acute Current Visit: Yes (4) HTN (hypertension) SNOMED Code(s): 78197256 Code(s): I10 - ESSENTIAL (PRIMARY) HYPERTENSION Status: Acute Current Visit: Yes (5) HLD (hyperlipidemia) SNOMED Code(s): 30523029 Code(s): E78.5 - HYPERLIPIDEMIA, UNSPECIFIED Status: Acute Current Visit: Yes (6) CHF (congestive heart failure) SNOMED Code(s): 37151196 Code(s): I50.9 - HEART FAILURE, UNSPECIFIED Status: Acute Current Visit: Yes (7) CKD (chronic kidney disease) stage 3, GFR 30-59 ml/min SNOMED Code(s): 642513558 Code(s): N18.30 - CHRONIC KIDNEY DISEASE, STAGE 3 UNSPECIFIED Status: Acute Current Visit: Yes - Problem List Review Problem List Initiated/Reviewed/Updated: Yes - My Orders Last 24 Hours: My Active Orders 03/28/21 14:00 Patient Status [ADT] Routine Ambulate [RC] BID VTE Pharmacological Contraindications [AST] Per Unit Routine Resuscitation Status Routine 03/28/21 14:01 Intake and Output [RC] 04,16 Oxygen Therapy [RC] PRN VTE/DVT Education [RC] PER UNIT ROUTINE Vital Signs [RC] Q4HR 03/28/21 14:02 Cardiac Monitoring [RC] CONTINUOUS 03/28/21 14:04 Daily Weight [Height and Weight] [RC] 06 RT Aerosol Therapy [RC] ASDIRECTED 03/28/21 14:45 Pharmacy to Dose - Warfarin 0 dose .XX ASDIRECTED PRN 03/28/21 Dinner 2 Gram Sodium Diet [DIET] 03/28/21 19:00 cefTRIAXone [Rocephin] 1 gm Sodium Chloride 0.9% [Normal Saline AdvBag] 100 ml IV Q24H 03/28/21 19:30 Azithromycin [Zithromax] 500 mg Sodium Chloride 0.9% [Normal Saline AdvBag] 250 ml IV Q24H 03/28/21 21:00 Albuterol/Ipratropium [DuoNeb 3.0-0.5 MG/3 ML] 3 ml NEB BIDRT Metoprolol Succinate [Toprol XL] 50 mg PO BID Pravastatin [Pravachol] 10 mg PO BEDTIME 03/29/21 05:09 FE, TIBC, TRANSFERRIN, FE SAT [CHEM] DAILY FERRITIN [CHEM] AM INR,PT,PROTHROMBIN TIME [COAG] AM IRON,FE [CHEM] AM PROCALCITONIN [REF] DAILY 03/29/21 06:00 Pantoprazole [ProTONIX] 40 mg PO ACBREAKFAST 03/29/21 06:07 Echo 2D wo Cont [US] Routine Potassium Chloride [Klor-Con M20] 40 meq PO ONETIME ONE 03/29/21 07:30 Furosemide [Lasix] 40 mg IVPUSH NOW ONE 03/29/21 09:00 Aspirin 81 mg PO DAILY Losartan [Cozaar] 50 mg PO DAILY 03/30/21 05:11 INR,PT,PROTHROMBIN TIME [COAG] AM 03/31/21 05:11 INR,PT,PROTHROMBIN TIME [COAG] AM 04/01/21 05:11 INR,PT,PROTHROMBIN TIME [COAG] AM 04/02/21 05:11 INR,PT,PROTHROMBIN TIME [COAG] AM 04/03/21 05:11 INR,PT,PROTHROMBIN TIME [COAG] AM - Plan Plan:: Patient is a 76-year-old female with a past medical history of atrial fibrilla tion status post pacemaker on chronic anticoagulation with warfarin, recent diagnosis of emphysema, questionable history of heart failure, hypertension, hyperlipidemia who presented with acute hypoxic respiratory failure was found to have bilateral pleural effusions concerning for a CHF exacerbation versus pneumonia. # Acute hypoxic respiratory failure # CHF # Pneumonia -Patient was hypoxic with oxygen saturations of 77% on room air on admission to ED - required 3-4L initially to maintain oxygen saturations -Chest x-ray on admission showed bilateral pleural effusions and pulmonary edema overall concerning for CHF versus pneumonia - pro BNP 17,799 -Patient's overall history, labs and physical exam point more towards a volume overload etiology -40 IV Lasix x2 in ED over 24 hours - patient was in ED for prolonged period due to lack of bed availability -Patient has no documented history of congestive heart failure and she denies any home diuretics - will continue to 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 -TTE today -We will also treat for pneumonia with continuation of ceftriaxone azithromycin for a total of 5 days and 3 days respectively -procalcitonin pending # Atrial fibrillation -Continue metoprolol succinate 50 mg twice daily -Will hold Cardizem in the setting of acute heart failure -Continue warfarin, pharmacy to dose -telemetry monitoring # CKD 3B -Patient's creatinine is 1.4 upon admission most recent creatinine we have is 1.4 in 2016 -Continue to monitor daily creatinine electrolytes while utilizing IV diuretics - repeat 1.4 today - K 3.3 will replete -noted proteinuria - continue losartan -will recommend outpatient consult to nephrology if patient has not already established given CKD3b and significant proteinuria # Anemia -Hemoglobin on admission 10.4, I do not have a baseline, no evidence of bleeding per patient, could be related to chronic kidney disease -Repeat this a.m. 9.8, stable, iron studies obtained showed a ferritin of 42 and an iron of 46 concerning for iron deficiency anemia -will start iron replacement with ferrous iron # Asymptomatic bacteria -Patient does not have any symptoms and is already being treated with ceftriaxone for possible pneumonia as above # Emphysema -Appears to be a recent diagnosis based on CT scan, patient states he has a follow-up with pulmonary medicine in the next several days -pending further workup could consider lower target oxygen of 88% -scheduled DuoNebs # GERDcontinue omeprazole # Hyperlipidemiacontinue statin # Gout - continue allopurinol - patient states she has been using 300 mg despite GFR - continue home dose Fluidsnone Electrolytesmild hypokalemia will replete Dietsodium restriction DVT prophylaxis warfarin Inpatient treatment for acute hypoxic respiratory failure - 1-2 additional days for diuresis, TTE
[2021-03-29] MEDS ORDERED: Furosemide 40 MG/4 ML VIAL IVPUSH ONE (07:30)
[2021-03-29] MEDS: Metoprolol Succinate 50 MG Tab.ER PO SCH ×2 (08:53→20:22)
[2021-03-29] MEDS: Losartan 50 MG Tab PO SCH (08:54)
[2021-03-29] MEDS: Aspirin 81 MG Tab.Chew PO SCH (08:54)
[2021-03-29] MEDS: Allopurinol 300 MG Tab PO SCH (10:22)
[2021-03-29] MEDS ORDERED: Warfarin 2.5 MG Tab PO SCH (18:00)
[2021-03-29] MEDS: cefTRIAXone 1 GM in Sodium Chloride 0.9% 100 ML IV SCH (18:05)
[2021-03-29] MEDS: Azithromycin 500 MG in Sodium Chloride 0.9% 250 ML IV SCH (18:32)
[2021-03-29] MEDS: Pravastatin 20 MG Tab PO SCH (20:21)
--- NOTE | 2021-03-30 05:45 | PCM.PN ---
- General Info Date of Service: 03/30/21 Subjective Update: Patient is alert and orientated x3. States that she feels her breathing is at baseline. Patient is requesting to go home. Awaiting results of TTE. Addendum went back and saw patient after results of TTE showing reduced ejection fraction of 30%. Had prolonged discussion with patient about need for cardiology follow- up and PCP follow-up within the next 1 to 2 weeks, discussion about diuretic therapy, daily weights and monitoring her intake and output. Patient stated understanding. Discussed LifeVest and patient declined.. Patient denies any chest pains or pressures. Remainder review of systems negative except those listed above. - Patient Data Vitals - Most Recent: Last Vital Signs Temp 98.4 F 03/30/21 04:32 Pulse 75 03/30/21 04:32 Resp 14 03/30/21 04:32 BP 148/65 H 03/30/21 04:32 Pulse Ox 92 L 03/30/21 04:32 Weight - Most Recent: 236 lb I&O - Last 24 Hours: Intake & Output 03/29/21 03/29/21 03/30/21 14:59 22:59 06:59 Intake Total 175 400 350 Output Total 1550 Balance 175 -1150 350 Lab Results Last 24 Hours: Laboratory Results - last 24 hr 03/29/21 03/29/21 03/29/21 Range/Units 05:09 05:09 05:09 WBC 6.50 (3.98-10.04) K/mm3 RBC 3.36 L (3.98-5.22) M/mm3 Hgb 9.8 L (11.2-15.7) gm/dl Hct 32.2 L (34.1-44.9) % MCV 95.8 H (79.4-94.8) fl MCH 29.2 (25.6-32.2) pg MCHC 30.4 L (32.2-35.5) g/dl RDW Std Deviation 51.0 H (36.4-46.3) fL Plt Count 177 L (182-369) K/mm3 MPV 9.7 (9.4-12.3) fl PT (9.7-12.0) SECONDS INR Sodium 141 (136-145) mEq/L Potassium 3.3 L (3.5-5.1) mEq/L Chloride 102 (98-107) mEq/L Carbon Dioxide 34 H (21-32) mEq/L Anion Gap 8.3 (5-15) BUN 26 H (7-18) mg/dL Creatinine 1.4 H (0.55-1.02) mg/dL Est Cr Clr Drug Dosing 32.20 mL/min Estimated GFR (MDRD) 36 (>60) mL/min BUN/Creatinine Ratio 18.6 H (14-18) Glucose 98 (70-99) mg/dL Calcium 8.7 (8.5-10.1) mg/dL Iron (50-170) ug/dL TIBC (100-400) ug/dL % Saturation (20-55) % Transferrin (202-364) mg/dL Ferritin (8-252) ng/ml Procalcitonin <0.05 ng/mL 03/29/21 03/29/21 03/29/21 Range/Units 05:09 05:09 05:09 WBC (3.98-10.04) K/mm3 RBC (3.98-5.22) M/mm3 Hgb (11.2-15.7) gm/dl Hct (34.1-44.9) % MCV (79.4-94.8) fl MCH (25.6-32.2) pg MCHC (32.2-35.5) g/dl RDW Std Deviation (36.4-46.3) fL Plt Count (182-369) K/mm3 MPV (9.4-12.3) fl PT 24.5 H (9.7-12.0) SECONDS INR 2.28 Sodium (136-145) mEq/L Potassium (3.5-5.1) mEq/L Chloride (98-107) mEq/L Carbon Dioxide (21-32) mEq/L Anion Gap (5-15) BUN (7-18) mg/dL Creatinine (0.55-1.02) mg/dL Est Cr Clr Drug Dosing mL/min Estimated GFR (MDRD) (>60) mL/min BUN/Creatinine Ratio (14-18) Glucose (70-99) mg/dL Calcium (8.5-10.1) mg/dL Iron 46 L (50-170) ug/dL TIBC 319 (100-400) ug/dL % Saturation 14 L (20-55) % Transferrin 255 (202-364) mg/dL Ferritin 42 (8-252) ng/ml Procalcitonin ng/mL Med Orders - Current: Current Medications Albuterol/Ipratropium (Albuterol/Ipratropium 3.0-0.5 Mg/3 Ml Neb Soln) 3 ml NEB BIDRT [facility] Last Admin: 03/29/21 21:11 Dose: 3 ml Documented by: Allopurinol (Allopurinol 300 Mg Tab) 300 mg PO DAILY [facility] Last Admin: 03/29/21 10:22 Dose: 300 mg Documented by: Aspirin (Aspirin 81 Mg Tab.Chew) 81 mg PO DAILY [facility] Last Admin: 03/29/21 08:54 Dose: 81 mg Documented by: Ferrous Sulfate (Ferrous Sulfate 324 Mg Tab.Ec) 324 mg PO WITHBREAKFAST [facility] Losartan Potassium (Losartan 50 Mg Tab) 50 mg PO DAILY [facility] Last Admin: 03/29/21 08:54 Dose: 50 mg Documented by: Metoprolol Succinate (Metoprolol Succinate 50 Mg Tab.Er) 50 mg PO BID [facility] Last Admin: 03/29/21 20:22 Dose: 50 mg Documented by: Pantoprazole Sodium (Pantoprazole 40 Mg Tab.Cr) 40 mg PO ACBREAKFAST [facility] Last Admin: 03/29/21 06:08 Dose: 40 mg Documented by: Pravastatin Sodium (Pravastatin 20 Mg Tab) 10 mg PO BEDTIME [facility] Last Admin: 03/29/21 20:21 Dose: 10 mg Documented by: Warfarin Sodium (Pharmacy To Dose - Warfarin) 0 dose .XX ASDIRECTED PRN PRN Reason: RX TO DOSE WARFARIN Discontinued Medications Albuterol/Ipratropium (Albuterol/Ipratropium 3.0-0.5 Mg/3 Ml Neb Soln) 3 ml NEB ONETIME ONE Stop: 03/27/21 16:28 Last Admin: 03/27/21 16:56 Dose: 3 ml Documented by: Furosemide (Furosemide 40 Mg/4 Ml Vial) 40 mg IVPUSH NOW ONE Stop: 03/27/21 18:13 Last Admin: 03/27/21 18:46 Dose: 40 mg Documented by: Furosemide (Furosemide 40 Mg/4 Ml Vial) 40 mg IVPUSH NOW ONE Stop: 03/28/21 12:16 Last Admin: 03/28/21 14:50 Dose: 40 mg Documented by: Furosemide (Furosemide 40 Mg/4 Ml Vial) Confirm Administered Dose 40 mg .ROUTE .STK-MED ONE Stop: 03/28/21 14:44 Last Admin: 03/28/21 15:06 Dose: Not Given Documented by: Furosemide (Furosemide 40 Mg/4 Ml Vial) 40 mg IVPUSH NOW ONE Stop: 03/29/21 07:31 Last Admin: 03/29/21 06:30 Dose: 40 mg Documented by: Ceftriaxone Sodium 1 gm/ (Sodium Chloride) 100 mls @ 200 mls/hr IV ONETIME ONE Stop: 03/27/21 18:23 Last Admin: 03/27/21 18:51 Dose: 200 mls/hr Documented by: Azithromycin 500 mg/ Sodium (Chloride) 250 mls @ 250 mls/hr IV ONETIME ONE Stop: 03/27/21 18:53 Last Admin: 03/27/21 19:28 Dose: 250 mls/hr Documented by: Azithromycin 500 mg/ Sodium (Chloride) 250 mls @ 250 mls/hr IV Q24H LITA Stop: 03/29/21 20:29 Last Admin: 03/29/21 18:32 Dose: 250 mls/hr Documented by: Ceftriaxone Sodium 1 gm/ (Sodium Chloride) 100 mls @ 200 mls/hr IV Q24H LITA Stop: 03/31/21 19:29 Last Admin: 03/29/21 18:05 Dose: 200 mls/hr Documented by: Potassium Chloride (Potassium Chloride 20 Meq Tab.Er) 40 meq PO ONETIME ONE Stop: 03/29/21 06:08 Last Admin: 03/29/21 06:23 Dose: 40 meq Documented by: Warfarin Sodium (Warfarin 1 Mg Tab) 1 mg PO QPM LITA Stop: 03/28/21 21:00 Last Admin: 03/28/21 18:03 Dose: 1 mg Documented by: Warfarin Sodium (Warfarin 2.5 Mg Tab) 2.5 mg PO QPM LITA Stop: 03/29/21 18:01 Last Admin: 03/29/21 18:05 Dose: 2.5 mg Documented by: - Exam General: Alert, Oriented HEENT: Pupils Equal, Pupils Reactive Neck: Supple Lungs: Normal Respiratory Effort, Crackles (minimal) Cardiovascular: Regular Rate, Irregular Rhythm GI/Abdominal Exam: Normal Bowel Sounds, Soft, Non-Tender Back Exam: Normal Inspection Extremities: Normal Inspection Peripheral Pulses: 2+: Radial (L), Radial (R) Skin: Warm Neurological: No New Focal Deficit Psy/Mental Status: Alert - Patient Data Lab Results Last 24 hrs: Laboratory Results - last 24 hr 03/29/21 03/29/21 03/29/21 Range/Units 05:09 05:09 05:09 WBC 6.50 (3.98-10.04) K/mm3 RBC 3.36 L (3.98-5.22) M/mm3 Hgb 9.8 L (11.2-15.7) gm/dl Hct 32.2 L (34.1-44.9) % MCV 95.8 H (79.4-94.8) fl MCH 29.2 (25.6-32.2) pg MCHC 30.4 L (32.2-35.5) g/dl RDW Std Deviation 51.0 H (36.4-46.3) fL Plt Count 177 L (182-369) K/mm3 MPV 9.7 (9.4-12.3) fl PT (9.7-12.0) SECONDS INR Sodium 141 (136-145) mEq/L Potassium 3.3 L (3.5-5.1) mEq/L Chloride 102 (98-107) mEq/L Carbon Dioxide 34 H (21-32) mEq/L Anion Gap 8.3 (5-15) BUN 26 H (7-18) mg/dL Creatinine 1.4 H (0.55-1.02) mg/dL Est Cr Clr Drug Dosing 32.20 mL/min Estimated GFR (MDRD) 36 (>60) mL/min BUN/Creatinine Ratio 18.6 H (14-18) Glucose 98 (70-99) mg/dL Calcium 8.7 (8.5-10.1) mg/dL Iron (50-170) ug/dL TIBC (100-400) ug/dL % Saturation (20-55) % Transferrin (202-364) mg/dL Ferritin (8-252) ng/ml Procalcitonin <0.05 ng/mL 03/29/21 03/29/21 03/29/21 Range/Units 05:09 05:09 05:09 WBC (3.98-10.04) K/mm3 RBC (3.98-5.22) M/mm3 Hgb (11.2-15.7) gm/dl Hct (34.1-44.9) % MCV (79.4-94.8) fl MCH (25.6-32.2) pg MCHC (32.2-35.5) g/dl RDW Std Deviation (36.4-46.3) fL Plt Count (182-369) K/mm3 MPV (9.4-12.3) fl PT 24.5 H (9.7-12.0) SECONDS INR 2.28 Sodium (136-145) mEq/L Potassium (3.5-5.1) mEq/L Chloride (98-107) mEq/L Carbon Dioxide (21-32) mEq/L Anion Gap (5-15) BUN (7-18) mg/dL Creatinine (0.55-1.02) mg/dL Est Cr Clr Drug Dosing mL/min Estimated GFR (MDRD) (>60) mL/min BUN/Creatinine Ratio (14-18) Glucose (70-99) mg/dL Calcium (8.5-10.1) mg/dL Iron 46 L (50-170) ug/dL TIBC 319 (100-400) ug/dL % Saturation 14 L (20-55) % Transferrin 255 (202-364) mg/dL Ferritin 42 (8-252) ng/ml Procalcitonin ng/mL Result Diagrams: 03/30/21 05:45 03/30/21 05:45 Sepsis Event Note - Evaluation Sepsis Screening Result: No Definite Risk - Focused Exam Vital Signs: Vital Signs Temp Pulse Resp BP Pulse Ox Pulse Ox 03/30/21 04:32 98.4 F 75 14 148/65 H 92 L 03/30/21 00:11 98.2 F 65 14 135/66 93 L 03/29/21 21:11 94 L 03/29/21 20:22 65 146/66 H 03/29/21 20:19 98.2 F 65 18 146/66 H 97 - Problem List & Annotations (1) Acute respiratory failure with hypoxia SNOMED Code(s): 43551689, 808923851 Code(s): J96.01 - ACUTE RESPIRATORY FAILURE WITH HYPOXIA Status: Acute Current Visit: Yes (2) Atrial fibrillation SNOMED Code(s): 18973380 Code(s): I48.91 - UNSPECIFIED ATRIAL FIBRILLATION Status: Acute Current Visit: Yes (3) Emphysema lung SNOMED Code(s): 74613165 Code(s): J43.9 - EMPHYSEMA, UNSPECIFIED Status: Acute Current Visit: Yes (4) HTN (hypertension) SNOMED Code(s): 51979374 Code(s): I10 - ESSENTIAL (PRIMARY) HYPERTENSION Status: Acute Current Visit: Yes (5) HLD (hyperlipidemia) SNOMED Code(s): 23211941 Code(s): E78.5 - HYPERLIPIDEMIA, UNSPECIFIED Status: Acute Current Visit: Yes (6) CHF (congestive heart failure) SNOMED Code(s): 80532063 Code(s): I50.9 - HEART FAILURE, UNSPECIFIED Status: Acute Current Visit: Yes Qualifiers: Heart failure type: systolic (7) CKD (chronic kidney disease) stage 3, GFR 30-59 ml/min SNOMED Code(s): 239337986 Code(s): N18.30 - CHRONIC KIDNEY DISEASE, STAGE 3 UNSPECIFIED Status: Acute Current Visit: Yes - Problem List Review Problem List Initiated/Reviewed/Updated: Yes - My Orders Last 24 Hours: My Active Orders 03/29/21 06:00 Pantoprazole [ProTONIX] 40 mg PO ACBREAKFAST 03/29/21 09:00 Aspirin 81 mg PO DAILY Losartan [Cozaar] 50 mg PO DAILY allopurinoL [Zyloprim] 300 mg PO DAILY 03/30/21 05:11 BASIC METABOLIC PANEL,BMP [CHEM] AM HEMOGLOBIN [HEME] AM INR,PT,PROTHROMBIN TIME [COAG] AM 03/30/21 07:00 Ferrous Sulfate 324 mg PO WITHBREAKFAST 03/31/21 05:11 INR,PT,PROTHROMBIN TIME [COAG] AM 04/01/21 05:11 INR,PT,PROTHROMBIN TIME [COAG] AM 04/02/21 05:11 INR,PT,PROTHROMBIN TIME [COAG] AM 04/03/21 05:11 INR,PT,PROTHROMBIN TIME [COAG] AM - Plan Plan:: Patient is a 76-year-old female with a past medical history of atrial fibrillation status post pacemaker on chronic anticoagulation with warfarin, recent diagnosis of emphysema, questionable history of heart failure, hypertension, hyperlipidemia who presented with acute hypoxic respiratory failure was found to have bilateral pleural effusions concerning for a CHF exacerbation versus pneumonia. # Acute hypoxic respiratory failure # CHF # Pneumonia -Patient was hypoxic with oxygen saturations of 77% on room air on admission to ED - required 3-4L initially to maintain oxygen saturations -Chest x-ray on admission showed bilateral pleural effusions and pulmonary edema overall concerning for CHF versus pneumonia - pro BNP 17,799 -Patient's overall history, labs and physical exam point more towards a volume overload etiology -40 IV Lasix x2 in ED over 24 hours - patient was in ED for prolonged period due to lack of bed availability -Patient states she has no documented history of congestive heart failure and she denies any home diuretics - will continue to attempt to obtain records from patient's ticket taker -Patient's oxygen saturations 94% on room air this morning, improved from prior and patient states she is at baseline -Patient was given IV Lasix x3 with good response, creatinine stable 1.5, potassium 3.4 will replete with p.o. -TTE performed on 03-29-2021 returned with left ventricular ejection fraction of 30%, moderate decreased left ventricular systolic function, normal right ventricular systolic function, no significant valvular abnormalities, mildly elevated right ventricular systolic pressure, severe biatrial dilatation. -Had a prolonged discussion with the patient given her now heart failure with reduced ejection fraction. Discussed that patient will likely require cardiology consultation within the next 1 week as outpatient will likely need discussion of repeat TTE versus coronary angiogram to determine ischemic versus nonischemic cardiomyopathy. Patient is already on guideline directed medical therapy with metoprolol succinate and losartan. Recommend continue titration with these as able as outpatient. -Discussed the addition of Lasix 40 mg daily p.o. and the addition of 40 mill equivalents potassium. Discussed daily weights and patient stated understanding. We will have patient follow-up with primary physician within 1 week with repeat basic metabolic panel. -Had a discussion about LifeVest (external defibrillator) therapy given ejection fraction less than 35% and patient declined. -For patient's questionable pneumonia she was initially treated with azithromycin completed her course, ceftriaxone was given for a total of 3 days, procalcitonin returned <0.05 at 03-30-2021 -antibiotics discontinued # Atrial fibrillation -Continue metoprolol succinate 50 mg twice daily -Will hold Cardizem in the setting of acute heart failure and discontinue at discharge -Continue warfarin, pharmacy to dose -telemetry monitoring # CKD 3B -Patient's creatinine is 1.4 upon admission most recent creatinine we have is 1.4 in 2016 -Continue to monitor daily creatinine electrolytes while utilizing IV diuretics - repeat 1.5 today - K 3.3 will replete -noted proteinuria - continue losartan -will recommend outpatient consult to nephrology if patient has not already established given CKD3b and significant proteinuria # Anemia -Hemoglobin on admission 10.4, I do not have a baseline, no evidence of bleeding per patient, could be related to chronic kidney disease -Repeat this a.m. 9.8, stable, iron studies obtained showed a ferritin of 42 and an iron of 46 concerning for iron deficiency anemia -will start iron replacement with ferrous iron # Asymptomatic bacteria -Patient does not have any symptoms and was already being treated with ceftriaxone for possible pneumonia as above # Emphysema -Appears to be a recent diagnosis based on CT scan, patient states he has a follow-up with pulmonary medicine in the next several days -pending further workup could consider lower target oxygen of 88% -scheduled DuoNebs # GERDcontinue omeprazole # Hyperlipidemiacontinue statin # Gout - continue allopurinol - patient states she has been using 300 mg despite GFR - continue home dose Fluidsnone Electrolytesmild hypokalemia will replete Dietsodium restriction DVT prophylaxis warfarin Medically stable for discharge today to home
[2021-03-30] MEDS: Albuterol/Ipratropium 3.0-0.5 MG/3 ML Neb Soln NEB SCH (05:59)
[2021-03-30] MEDS: Pantoprazole 40 MG Tab.CR PO SCH (06:29)
[2021-03-30] MEDS ORDERED: Ferrous Sulfate 324 MG Tab.EC PO SCH (07:00)
[2021-03-30] MEDS ORDERED: Potassium Chloride 20 MEQ Tab.ER PO ONE (07:58)
[2021-03-30] MEDS: Losartan 50 MG Tab PO SCH (08:31)
[2021-03-30] MEDS: Metoprolol Succinate 50 MG Tab.ER PO SCH (08:32)
[2021-03-30] MEDS: Allopurinol 300 MG Tab PO SCH (08:32)
[2021-03-30] MEDS: Aspirin 81 MG Tab.Chew PO SCH (08:32)
[2021-03-30 08:36] VITALS: PULSE 60
[2021-03-30] MEDS ORDERED: Furosemide 40 MG Tab PO SCH (09:00)
--- NOTE | 2021-03-30 09:17 | PCM.DCSUM1 ---
Discharge Summary - Hospital Course Free Text/Narrative:: Patient is a 76-year-old female with a past medical history of atrial fibrillation status post pacemaker on chronic anticoagulation with warfarin, questionable history of CHF, recent diagnosis of emphysema, hypertension, hyperlipidemia who presented the emergency department with shortness of breath and confusion. Per patient, EMS reports patient had been having increased shortness of breath and confusion over the last several days and she had reportedly had some hallucinations per her son who brought her in for further evaluation. Patient was initially hypoxic with oxygen saturation 77% on room air when she was brought to the emergency department. Patient's oxygenation improved significantly with the addition of nasal cannula. Laboratory values include sodium 145, potassium 3.8, creatinine 1.4, BUN 24, white count 6, hemoglobin 10.4, platelet count 201, proBNP 17,799, UA showed moderate bacteria, +3 blood, positive nitrites. Patient's COVID-19 testing was negative. Chest x- ray revealed bilateral effusions, pulmonary edema versus infiltrate. Patient was given ceftriaxone, azithromycin, 40 IV Lasix in the emergency department. Request was made for admission but no beds were available so patient was held in the ER overnight. The following day patient continued provement her oxygenation was requiring 3 to 4 L to maintain oxygen saturations. An additional dose of 40 IV Lasix, ceftriaxone and azithromycin were given to patient prior to admission. Patient remained hemodynamically stable. When I saw patient emergency department she was resting comfortably in bed. She states that she agrees with the above assessment. States that she was seeing things around the house including a little child in their house. She states that her is on dialysis and often gets urinary tract infections and also was seeing things in their house. She states that she has chronic dyspnea for many years and was just recently diagnosed with emphysema on a CAT scan and was supposed to see pulmonary medicine this next Saturday. She states that for the last couple of weeks and specialist couple of days she is noted some increased shortness of breath including worsening leg swelling, orthopnea. She denies any fevers, cough, abdominal pain, urinary pain or frequency, nausea or vomiting. She states that she has a history of A. fib and has a pacemaker and takes medications for this. She states that she has heard that her field counsel was Dr. Nathan at [facility] has mentioned something about heart failure before but she is unsure if she has heart failure. Patient states that she does not take any diuretic medications and she states she is never had to be hospitalized for heart failure. Patient also states for emphysema she does not take any nebulizers at home. Remainder review of systems negative except those listed above. For patient's acute hypoxic respiratory failure was concern on initial imaging of volume overload versus pneumonia. Favored volume overload but continued antibiotics given the emergency department with azithromycin and ceftriaxone. Patient completed his course of azithromycin and completed 3 days of ceftriaxone procalcitonin returned at less than 0.05. Antibiotics were discontinued. Patient is likely volume overloaded she was given IV 40 mg Lasix x3 over the course of 48 hours with good response, creatinine electrolytes main stable and were repleted as needed. TTE performed on 03-29-2021 returned with left ventricular ejection fraction of 30%, moderate decreased left ventricular systolic function, normal right ventricular systolic function, no significant valvular abnormalities, mildly elevated right ventricular systolic pressure, severe biatrial dilatation. Had a prolonged discussion with the patient given her now heart failure with reduced ejection fraction. Discussed that patient will likely require cardiology consultation within the next 1-2 weeks as outpatient will likely need discussion of repeat TTE versus coronary angiogram to determine ischemic versus nonischemic cardiomyopathy. Patient is already on guideline directed medical therapy with metoprolol succinate and losartan. Recommend continue titration with these as able as outpatient. Discussed the addition of Lasix 40 mg daily p.o. and the addition of 40 mill equivalents potassium. Discussed daily weights and patient stated understanding. We will have patient follow-up with primary physician within 1 week with repeat basic metabolic panel. Had a discussion about LifeVest (external defibrillator) therapy given ejection fraction less than 35% and patient declined. For patient's atrial fibrillation we held her Cardizem the setting of acute heart failure and recommend discontinuation upon discharge. Recommended continue metoprolol succinate 50 mg twice daily with continued up titration. Patient's heart rate remained stable during her hospitalization on telemetry. For patient's CKD stage IIIb her creatinine jessica stable with IV diuretics. Noted proteinuria on UA. Continue her losartan. Recommend discussion with her primary care physician about follow-up with nephrology for consult of significant proteinuria in the setting of CKD stage IIIb. For patient's anemia hemoglobin remained stable during hospitalization with no evidence of bleeding. Iron studies showed a ferritin of 42 and an iron of 46 concerning for iron deficiency anemia we will start iron replacement. - Discharge Data Discharge Date: 03/30/21 Discharge Disposition: Home, Self-Care 01 Condition: Good - Referral to Home Health Primary Care Physician: Lizet Johnston MD - Discharge Diagnosis/Problem(s) (1) Acute respiratory failure with hypoxia SNOMED Code(s): 25125854, 899315756 ICD Code: J96.01 - ACUTE RESPIRATORY FAILURE WITH HYPOXIA Status: Acute Current Visit: Yes (2) Atrial fibrillation SNOMED Code(s): 44958962 ICD Code: I48.91 - UNSPECIFIED ATRIAL FIBRILLATION Status: Acute Current Visit: Yes (3) Emphysema lung SNOMED Code(s): 96515466 ICD Code: J43.9 - EMPHYSEMA, UNSPECIFIED Status: Acute Current Visit: Yes (4) HTN (hypertension) SNOMED Code(s): 11287754 ICD Code: I10 - ESSENTIAL (PRIMARY) HYPERTENSION Status: Acute Current Visit: Yes (5) HLD (hyperlipidemia) SNOMED Code(s): 91606724 ICD Code: E78.5 - HYPERLIPIDEMIA, UNSPECIFIED Status: Acute Current Visit: Yes (6) CHF (congestive heart failure) SNOMED Code(s): 33250701 ICD Code: I50.9 - HEART FAILURE, UNSPECIFIED Status: Acute Current Visit: Yes Qualifiers: Heart failure type: systolic (7) CKD (chronic kidney disease) stage 3, GFR 30-59 ml/min SNOMED Code(s): 422881692 ICD Code: N18.30 - CHRONIC KIDNEY DISEASE, STAGE 3 UNSPECIFIED Status: Acute Current Visit: Yes - Patient Instructions Diet: Low Sodium - Discharge Plan *PRESCRIPTION DRUG MONITORING PROGRAM REVIEWED*: Not Applicable *COPY OF PRESCRIPTION DRUG MONITORING REPORT IN PATIENT ELOISE: Not Applicable Prescriptions/Med Rec: Ferrous Sulfate 324 mg PO WITHBREAKFAST 30 Days #30 tab.ec Potassium Chloride [Klor-Con M20] 40 meq PO DAILY 30 Days #60 tab.er Furosemide [Lasix] 40 mg PO DAILY 30 Days #30 tablet Home Medications: Home Meds Allopurinol [Zyloprim] 300 mg PO DAILY 01/02/16 [History] Aspirin 81 mg PO DAILY 01/02/16 [History] Metoprolol Succinate [Toprol XL] 50 mg PO BID 01/02/16 [History] Omeprazole 20 mg PO ACBREAKFAST 01/02/16 [History] Simvastatin [Zocor] 5 mg PO BEDTIME 01/02/16 [History] Warfarin [Coumadin] 2.5 mg PO SUTUWETHSA 01/02/16 [History] Doxazosin Mesylate [Cardura] 2 mg PO BEDTIME 03/27/21 [History] Losartan [Cozaar] 50 mg PO DAILY 03/27/21 [History] Multivitamin [Multi-Vitamin Daily] 1 tab PO DAILY 03/27/21 [History] Triamcinolone Acetonide [Triamcinolone Acetonide 0.1% Crm] 1 applic TOP BID PRN 03/27/21 [History] Warfarin [Coumadin] 5 mg PO MOFR 03/27/21 [History] Ferrous Sulfate 324 mg PO WITHBREAKFAST 30 Days #30 tab.ec 03/30/21 [Rx] Furosemide [Lasix] 40 mg PO DAILY 30 Days #30 tablet 03/30/21 [Rx] Potassium Chloride [Klor-Con M20] 40 meq PO DAILY 30 Days #60 tab.er 03/30/21 [Rx] Patient Handouts: Heart Failure Action Plan Forms: ED Department Discharge Referrals: Lizet Johnston MD [Primary Care Provider] - - Discharge Summary/Plan Comment DC Time >30 min.: Yes Total # of Minutes for Discharge Time: 45 minutes - Patient Data Vitals - Most Recent: Last Vital Signs Temp 98.2 F 03/30/21 07:25 Pulse 60 03/30/21 08:32 Resp 14 03/30/21 07:25 BP 176/72 H 03/30/21 08:32 Pulse Ox 92 L 03/30/21 07:25 Weight - Most Recent: 236 lb I&O - Last 24 hours: Intake & Output 03/29/21 03/30/21 03/30/21 22:59 06:59 14:59 Intake Total 400 350 Output Total 1550 Balance -1150 350 Lab Results - Last 24 hrs: Laboratory Results - last 24 hr 03/29/21 03/30/21 03/30/21 Range/Units 05:09 05:45 05:45 Hgb 10.4 L (11.2-15.7) gm/dl PT 18.4 H (9.7-12.0) SECONDS INR 1.69 Sodium (136-145) mEq/L Potassium (3.5-5.1) mEq/L Chloride (98-107) mEq/L Carbon Dioxide (21-32) mEq/L Anion Gap (5-15) BUN (7-18) mg/dL Creatinine (0.55-1.02) mg/dL Est Cr Clr Drug Dosing mL/min Estimated GFR (MDRD) (>60) mL/min BUN/Creatinine Ratio (14-18) Glucose (70-99) mg/dL Calcium (8.5-10.1) mg/dL Procalcitonin <0.05 ng/mL 03/30/21 Range/Units 05:45 Hgb (11.2-15.7) gm/dl PT (9.7-12.0) SECONDS INR Sodium 140 (136-145) mEq/L Potassium 3.4 L (3.5-5.1) mEq/L Chloride 101 (98-107) mEq/L Carbon Dioxide 34 H (21-32) mEq/L Anion Gap 8.4 (5-15) BUN 24 H (7-18) mg/dL Creatinine 1.5 H (0.55-1.02) mg/dL Est Cr Clr Drug Dosing 30.06 mL/min Estimated GFR (MDRD) 34 (>60) mL/min BUN/Creatinine Ratio 16.0 (14-18) Glucose 90 (70-99) mg/dL Calcium 9.0 (8.5-10.1) mg/dL Procalcitonin ng/mL Med Orders - Current: Current Medications Albuterol/Ipratropium (Albuterol/Ipratropium 3.0-0.5 Mg/3 Ml Neb Soln) 3 ml NEB BIDRT COUNTS INCLUDE 234 BEDS AT THE [facility] Last Admin: 03/30/21 05:59 Dose: 3 ml Documented by: Allopurinol (Allopurinol 300 Mg Tab) 300 mg PO DAILY COUNTS INCLUDE 234 BEDS AT THE [facility] Last Admin: 03/30/21 08:32 Dose: 300 mg Documented by: Aspirin (Aspirin 81 Mg Tab.Chew) 81 mg PO DAILY COUNTS INCLUDE 234 BEDS AT THE [facility] Last Admin: 03/30/21 08:32 Dose: 81 mg Documented by: Ferrous Sulfate (Ferrous Sulfate 324 Mg Tab.Ec) 324 mg PO WITHBREAKFAST COUNTS INCLUDE 234 BEDS AT THE [facility] Last Admin: 03/30/21 06:29 Dose: 324 mg Documented by: Furosemide (Furosemide 40 Mg Tab) 40 mg PO DAILY COUNTS INCLUDE 234 BEDS AT THE [facility] Losartan Potassium (Losartan 50 Mg Tab) 50 mg PO DAILY COUNTS INCLUDE 234 BEDS AT THE [facility] Last Admin: 03/30/21 08:31 Dose: 50 mg Documented by: Metoprolol Succinate (Metoprolol Succinate 50 Mg Tab.Er) 50 mg PO BID COUNTS INCLUDE 234 BEDS AT THE [facility] Last Admin: 03/30/21 08:32 Dose: 50 mg Documented by: Pantoprazole Sodium (Pantoprazole 40 Mg Tab.Cr) 40 mg PO ACBREAKFAST COUNTS INCLUDE 234 BEDS AT THE [facility] Last Admin: 03/30/21 06:29 Dose: 40 mg Documented by: Pravastatin Sodium (Pravastatin 20 Mg Tab) 10 mg PO BEDTIME COUNTS INCLUDE 234 BEDS AT THE [facility] Last Admin: 03/29/21 20:21 Dose: 10 mg Documented by: Warfarin Sodium (Pharmacy To Dose - Warfarin) 0 dose .XX ASDIRECTED PRN PRN Reason: RX TO DOSE WARFARIN Warfarin Sodium (Warfarin 5 Mg Tab) 5 mg PO QPM COUNTS INCLUDE 234 BEDS AT THE [facility] Stop: 03/30/21 18:01 Discontinued Medications Albuterol/Ipratropium (Albuterol/Ipratropium 3.0-0.5 Mg/3 Ml Neb Soln) 3 ml NEB ONETIME ONE Stop: 03/27/21 16:28 Last Admin: 03/27/21 16:56 Dose: 3 ml Documented by: Furosemide (Furosemide 40 Mg/4 Ml Vial) 40 mg IVPUSH NOW ONE Stop: 03/27/21 18:13 Last Admin: 03/27/21 18:46 Dose: 40 mg Documented by: Furosemide (Furosemide 40 Mg/4 Ml Vial) 40 mg IVPUSH NOW ONE Stop: 03/28/21 12:16 Last Admin: 03/28/21 14:50 Dose: 40 mg Documented by: Furosemide (Furosemide 40 Mg/4 Ml Vial) Confirm Administered Dose 40 mg .ROUTE .STK-MED ONE Stop: 03/28/21 14:44 Last Admin: 03/28/21 15:06 Dose: Not Given Documented by: Furosemide (Furosemide 40 Mg/4 Ml Vial) 40 mg IVPUSH NOW ONE Stop: 03/29/21 07:31 Last Admin: 03/29/21 06:30 Dose: 40 mg Documented by: Ceftriaxone Sodium 1 gm/ (Sodium Chloride) 100 mls @ 200 mls/hr IV ONETIME ONE Stop: 03/27/21 18:23 Last Admin: 03/27/21 18:51 Dose: 200 mls/hr Documented by: Azithromycin 500 mg/ Sodium (Chloride) 250 mls @ 250 mls/hr IV ONETIME ONE Stop: 03/27/21 18:53 Last Admin: 03/27/21 19:28 Dose: 250 mls/hr Documented by: Azithromycin 500 mg/ Sodium (Chloride) 250 mls @ 250 mls/hr IV Q24H COUNTS INCLUDE 234 BEDS AT THE [facility] Stop: 03/29/21 20:29 Last Admin: 03/29/21 18:32 Dose: 250 mls/hr Documented by: Ceftriaxone Sodium 1 gm/ (Sodium Chloride) 100 mls @ 200 mls/hr IV Q24H COUNTS INCLUDE 234 BEDS AT THE [facility] Stop: 03/31/21 19:29 Last Admin: 03/29/21 18:05 Dose: 200 mls/hr Documented by: Potassium Chloride (Potassium Chloride 20 Meq Tab.Er) 40 meq PO ONETIME ONE Stop: 03/29/21 06:08 Last Admin: 03/29/21 06:23 Dose: 40 meq Documented by: Potassium Chloride (Potassium Chloride 20 Meq Tab.Er) 40 meq PO ONETIME ONE Stop: 03/30/21 07:59 Last Admin: 03/30/21 08:31 Dose: 40 meq Documented by: Warfarin Sodium (Warfarin 1 Mg Tab) 1 mg PO QPM COUNTS INCLUDE 234 BEDS AT THE [facility] Stop: 03/28/21 21:00 Last Admin: 03/28/21 18:03 Dose: 1 mg Documented by: Warfarin Sodium (Warfarin 2.5 Mg Tab) 2.5 mg PO QPM COUNTS INCLUDE 234 BEDS AT THE [facility] Stop: 03/29/21 18:01 Last Admin: 03/29/21 18:05 Dose: 2.5 mg Documented by: *Q Meaningful Use (DIS) - VTE *Q VTE Pharmacological Contraindications *Q: Risk of Bleeding
[2021-03-30 12:04] VITALS: BP 151/81
[2021-03-30] MEDS ORDERED: Warfarin 5 MG Tab PO SCH (18:00)
== END 2021-03-30 12:04 | disposition home or self-care (01) | DRG 291 ==
LOC: JD.ED 15:44 → JD.MS 03-28 13:34
PROVIDERS: ADMIT Emergency Medicine; ATTEND Internal Medicine
DX: I50.9 Heart failure, unspecified (principal); N18.30 Chronic kidney disease, stage 3 unspecified; I13.0 Hypertensive heart and chronic kidney disease with heart failure and stage 1 through stage 4 chronic kidney disease, or unspecified chronic kidney disease; K44.9 Diaphragmatic hernia without obstruction or gangrene; J18.9 Pneumonia, unspecified organism; I50.21 Acute systolic (congestive) heart failure; J96.01 Acute respiratory failure with hypoxia; Z88.1 Allergy status to other antibiotic agents; E78.5 Hyperlipidemia, unspecified; Z88.8 Allergy status to other drugs, medicaments and biological substances; J43.9 Emphysema, unspecified; N18.32 Chronic kidney disease, stage 3b; I48.91 Unspecified atrial fibrillation; Z20.822 Contact with and (suspected) exposure to COVID-19; K21.9 Gastro-esophageal reflux disease without esophagitis; M19.90 Unspecified osteoarthritis, unspecified site; G89.29 Other chronic pain; M54.9 Dorsalgia, unspecified; M10.9 Gout, unspecified; D63.1 Anemia in chronic kidney disease; E87.6 Hypokalemia; Z88.0 Allergy status to penicillin; Z88.2 Allergy status to sulfonamides; Z79.82 Long term (current) use of aspirin; Z79.01 Long term (current) use of anticoagulants; Z79.899 Other long term (current) drug therapy; Z95.0 Presence of cardiac pacemaker; Z90.49 Acquired absence of other specified parts of digestive tract
CPT/HCPCS: 36415; 71045; 80053; 81001; 82803; 83880; 84484; 85025; 85379; 85610; 93005; 94640; 96365; 96367; 96375; 99285; J0456; J0696; J1940; J7050; U0002; 80048; 82728; 83540; 84145; 84466; 85018; 85027; 93306; 94760; 94761; A9270-GY; J7620-GY

== ENCOUNTER 2023-07-04 07:45 | Day surgery (SDC) | payer MEDICARE ==
[~2023-07-04 07:45] MED LIST: Polymyxin B/Trimethoprim 10 ML Bottle EYELF SCH
[2023-07-04] MEDS: Ofloxacin 0.3% Ophth Soln 5 ML Bottle EYELF SCH (08:00)
[2023-07-04] MEDS: Brimonidine 0.2% Ophth Soln 5 ML Bottle EYELF SCH (08:05)
[2023-07-04] MEDS: Phenylephrine 2.5% Ophth Soln 2 ML Bot EYELF SCH (08:10)
[2023-07-04] MEDS: Tropicamide 1% Ophth Soln 3 ML Bottle EYELF SCH (08:15)
[2023-07-04] MEDS: Tetracaine HCl/PF 0.5% 4 ML Bottle EYEBOTH SCH (09:15)
[2023-07-04] MEDS: Lidocaine 1% PF 2 ML SDV INJECT SCH (09:37)
[2023-07-04] MEDS: Cefuroxime 10 MG/ML SYRINGE EYELF SCH (09:47)
[2023-07-04] MEDS: Pilocarpine 4% Ophth Soln 15 ML Bot EYELF SCH (09:49)
[2023-07-04 10:05] VITALS: BP 154/81; PULSE 77
== END 2023-07-04 10:05 | disposition home or self-care (01) ==
LOC: JD.SDS 07:45
PROVIDERS: ATTEND Ophthalmology
DX: H25.813 Combined forms of age-related cataract, bilateral (principal); I10 Essential (primary) hypertension; Z79.899 Other long term (current) drug therapy; Z98.890 Other specified postprocedural states; Z88.0 Allergy status to penicillin; Z88.1 Allergy status to other antibiotic agents; Z88.2 Allergy status to sulfonamides
CPT/HCPCS: 66984; A9270; J0697; 00142; 99100; J3490

== ENCOUNTER 2023-09-05 12:52 | Day surgery (SDC) | payer MEDICARE ==
[2023-09-05] MEDS: Ofloxacin 0.3% Ophth Soln 5 ML Bottle EYERT SCH (13:33)
[2023-09-05] MEDS: Brimonidine 0.2% Ophth Soln 5 ML Bottle EYERT SCH (13:40)
[2023-09-05] MEDS: Phenylephrine 2.5% Ophth Soln 2 ML Bot EYERT SCH (13:43)
[2023-09-05] MEDS: Tropicamide 1% Ophth Soln 3 ML Bottle EYERT SCH (13:49)
[2023-09-05] MEDS: Tetracaine HCl/PF 0.5% 4 ML Bottle EYEBOTH SCH (14:40)
[2023-09-05] MEDS: Lidocaine 1% PF 2 ML SDV INJECT SCH (15:05)
[2023-09-05] MEDS: Cefuroxime 10 MG/ML SYRINGE EYERT SCH (15:14)
[2023-09-05] MEDS: Polymyxin B/Trimethoprim 10 ML Bottle EYERT SCH (15:14)
[2023-09-05] MEDS: Pilocarpine 4% Ophth Soln 15 ML Bot EYERT SCH (15:14)
[2023-09-05 16:00] VITALS: BP 134/66; PULSE 71
== END 2023-09-05 15:42 | disposition home or self-care (01) ==
LOC: JD.SDS 12:52
PROVIDERS: ATTEND Ophthalmology
DX: H25.811 Combined forms of age-related cataract, right eye (principal); H35.3132 Nonexudative age-related macular degeneration, bilateral, intermediate dry stage; H35.363 Drusen (degenerative) of macula, bilateral; H16.103 Unspecified superficial keratitis, bilateral; H16.223 Keratoconjunctivitis sicca, not specified as Sjogren's, bilateral; H02.831 Dermatochalasis of right upper eyelid; H02.834 Dermatochalasis of left upper eyelid; I11.0 Hypertensive heart disease with heart failure; I50.9 Heart failure, unspecified; E78.00 Pure hypercholesterolemia, unspecified; J43.9 Emphysema, unspecified; Z96.1 Presence of intraocular lens; Z79.899 Other long term (current) drug therapy; Z88.0 Allergy status to penicillin; Z88.2 Allergy status to sulfonamides; Z88.1 Allergy status to other antibiotic agents
CPT/HCPCS: 66984; A9270; J0697; J3490

== ENCOUNTER 2024-03-22 19:17 | Emergency (ER) | payer MEDICARE ==
[2024-03-22 20:39] LABS: BASOPHILS ABSOLUTE AUTO 0.1 K/mm3 (0.0-0.2); BASOPHILS PERCENT AUTO 1.3 % (0.0-1.0); EOSINOPHILS ABSOLUTE AUTO 0.1 K/mm3 (0.0-0.4); EOSINOPHILS PERCENT AUTO 1.9 % (0.0-6.0); HEMATOCRIT 38.8 % (37.0-47.0); HEMOGLOBIN 12.1 gm/dl (12.0-16.0); IMMATURE GRAN ABSOLUTE AUTO 0.02 K/mm3 (0.00-0.05); IMMATURE GRAN PERCENT AUTO 0.4 % (0.0-0.4); LYMPHOCYTES ABSOLUTE AUTO 0.6 K/mm3 (1.0-4.8); LYMPHOCYTES PERCENT AUTO 12.1 % (24.0-44.0); MEAN CORPUSCULAR HEMOGLOBIN 30.6 pg (28.0-32.0); MEAN CORPUSCULAR HGB CONC 31.2 g/dl (32.0-36.0); MEAN PLATELET VOLUME 9.1 fl (9.4-12.3); MONOCYTES ABSOLUTE AUTO 0.3 K/mm3 (0.0-0.8); MONOCYTES PERCENT AUTO 5.5 % (0.0-8.0); NEUTROPHILS ABSOLUTE AUTO 3.7 K/mm3 (1.8-7.7); NEUTROPHILS PERCENT AUTO 78.8 % (41.0-71.0); NRBC ABSOLUTE 0.02 (0.00-0.02); NRBC PERCENT 0.4 % (0.0-0.2); PLATELET COUNT,PLT 127 K/mm3 (150-400); RED BLOOD CELL COUNT 3.96 M/mm3 (4.10-5.30); WHITE BLOOD CELL COUNT,WBC 4.72 K/mm3 (3.9-11.3)
[2024-03-22 20:56] LABS: INR 3.8; PROTHROMBIN TIME 36.9 SECONDS (9.7-12.0)
[2024-03-22 21:09] LABS: A/G RATIO 0.8 (1-2); ALBUMIN 3.2 g/dl (3.4-5.0); ANION GAP 14.3 (5-15); BILIRUBIN TOTAL 1.4 mg/dL (0.2-1.0); BUN/CREATININE RATIO 11.7 (14-18); CALCIUM 9.1 mg/dL (8.5-10.1); CREATININE 1.8 mg/dL (0.55-1.02); EST CRCL DRUG DOSING (CG) 19.39 mL/min; MAGNESIUM 1.8 mg/dL (1.8-2.4); POTASSIUM,K 4.3 mEq/L (3.5-5.1)
[2024-03-22 22:11] LABS: APPEARANCE,URINE SLT CLOUDY (Clear); BILIRUBIN,URINE NEGATIVE (Negative); COLOR,URINE LIGHT YELLOW (Yellow); GLUCOSE,URINE TRACE (Negative); KETONES,URINE NEGATIVE (Negative); LEUKOCYTE ESTERASE,URINE 3+ (Negative); NITRITE,URINE NEGATIVE (Negative); OCCULT BLOOD,URINE NEGATIVE (Negative); PH,URINE 5.5 (5.0-8.0); PROTEIN,URINE NEGATIVE (Negative); UROBILINOGEN,URINE 0.2 (0.2-1.0)
[2024-03-22 22:41] LABS: BACTERIA,URINE MODERATE /hpf (FEW); HYALINE CASTS,URINE 40-50 /lpf (0-5); MUCUS,URINE RARE /hpf (FEW); RBC,URINE 0-5 /hpf (0-5); SQUAMOUS EPITHELIAL CELLS,UR 20-30 /hpf (0-5); WBC,URINE >100 /hpf (0-5)
[2024-03-22] MEDS ORDERED: cefTRIAXone 1 GM in Sodium Chloride 0.9% 50 ML IV ONE (23:01)
[2024-03-22] MEDS ORDERED: cefTRIAXone 1 GM Vial IV ONE (23:15)
[2024-03-22] MEDS: cefTRIAXone 1 GM Vial IM ONE (23:21)
[2024-03-22 23:54] VITALS: BP 144/79; PULSE 70
== END 2024-03-22 23:57 | disposition home or self-care (01) ==
LOC: JD.ED 19:17
DX: N39.0 Urinary tract infection, site not specified (principal); I48.91 Unspecified atrial fibrillation; I13.0 Hypertensive heart and chronic kidney disease with heart failure and stage 1 through stage 4 chronic kidney disease, or unspecified chronic kidney disease; I50.9 Heart failure, unspecified; N18.9 Chronic kidney disease, unspecified; E78.00 Pure hypercholesterolemia, unspecified; K21.9 Gastro-esophageal reflux disease without esophagitis; E66.9 Obesity, unspecified; Z95.0 Presence of cardiac pacemaker; Z79.899 Other long term (current) drug therapy; Z79.01 Long term (current) use of anticoagulants; Z88.1 Allergy status to other antibiotic agents; Z88.2 Allergy status to sulfonamides; Z88.0 Allergy status to penicillin; Z88.8 Allergy status to other drugs, medicaments and biological substances; Z68.41 Body mass index [BMI] 40.0-44.9, adult
CPT/HCPCS: 36415; 71046; 80053; 81001; 83735; 84484; 85025; 85610; 87086; 87428; 93005; 96372; 99285; J0696